=== PATIENT | female | born 1980 | race Caucasian/White ===

== ENCOUNTER → 2017-07-02 12:55 | Inpatient (IN) | payer BC, OTHER ==
[2017-06-30 04:25] VITALS: BMI 28.2
[2017-06-30 04:28] LABS: BASO % 0.2 % (0-2.0); EOS % 2.9 % (0-4.5); HEMATOCRIT 33.6 % (32.4-45.2); HEMOGLOBIN 11.2 GM/dL (10.7-15.3); LYMPH % 21.6 % (8-40); MCH 31.8 pg (25.7-33.7); MCHC 33.4 g/dl (32.0-36.0); MEAN CELL VOLUME 95.2 fl (80-96); MEAN PLT VOLUME 9.2 fl (7.5-11.1); MONO % 7.1 % (3.8-10.2); NEUT % 68.2 % (42.8-82.8); PLATELET COUNT 184 K/MM3 (134-434); RBC 3.54 M/mm3 (3.60-5.2); RDW 15.6 % (11.6-15.6); WHITE BLOOD COUNT 7.4 K/mm3 (4.0-10.0)
[2017-06-30 04:40] LABS: PROTHROMBIN TIME (PATIENT) 11.3 SEC (9.98-11.88)
[2017-06-30 04:43] LABS: ACTIVATED PTT 27.1 SECONDS (26.9-34.4)
[2017-06-30 04:55] LABS: ALBUMIN 2.7 g/dl (3.4-5.0); ALK PHOS 172 U/L (45-117); ANION GAP 11 (8-16); BILIRUBIN,TOTAL 0.1 mg/dL (0.2-1.0); BLOOD UREA NITROGEN 6 mg/dL (7-18); CALCIUM 8.5 mg/dL (8.5-10.1); CHLORIDE 106 mmol/L (98-107); CO2 22 mmol/L (21-32); CREATININE 0.5 mg/dL (0.55-1.02); GLUCOSE,RANDOM 91 mg/dL (74-106); SGPT/ALT 17 U/L (12-78); SODIUM 139 mmol/L (136-145); TOT PROT 6.3 g/dl (6.4-8.2)
[2017-06-30 05:01] LABS: POTASSIUM 3.8 mmol/L (3.5-5.1); SGOT/AST 23 U/L (15-37)
--- NOTE | 2017-06-30 05:07 | HP ---
Past Medical History - Admission History of Present Illness: 36 yo @ 37 6/7 wks by first trimester ultrasound, EDC 07/17/2017 complicated by: 1. Prior CD for breech, labor 2. Prior delivery 34 weeks - PPROM s/p 17 OHP last dose at 36 weeks 3. GBS positive, penicillin allergy clindamycin resistant 4. AMA - favorable cell free DNA, AFP normal Patient presents with chief complaint of leakage of clear fluid at 0200. She reports irregular contractions began at that time. She reports movement, denies vaginal bleeding. History Source: Patient Limitations to Obtaining History: No Limitations - Past Medical History Cardiovascular: No: HTN Pulmonary: No: Asthma ...: 4 ...Para: 1 ...Term: 1 ...: 0 ...Spon : 2 ...Induced : 0 ...Multiple Gestation: 0 ...LMP: 10/10/16 ... Weeks Gestation by Dates: 37.3 ...EDC by Dates: 07/17/17 ...EDC by Sono: 07/14/17 Heme/Onc: Yes: Anemia Dermatology: Yes: Eczema - Past Surgical History Past Surgical History: Yes: Hx Myomectomy: No Hx Transabdominal Cerclage: No - Smoking History Smoking history: Never smoked Have you smoked in the past 12 months: No Aproximately how many cigarettes per day: 0 - Alcohol/Substance Use Hx Alcohol Use: No History of Substance Use: reports: None - Social History ADL: Independent History of Recent Travel: No Home Medications - Allergies Allergies/Adverse Reactions: Allergies Allergy/AdvReac Type Severity Reaction Status Date / Time Penicillins Allergy Swelling Verified 04/12/17 16:26 - Home Medications Home Medications: Ambulatory Orders Vitamins (Sjr) - 1 tab PO DAILY 06/02/13 Ferrous Sulfate [Iron] 325 mg PO BID 06/30/17 Family Disease History - Family Disease History Family History: Denies Review of Systems - Review of Systems Constitutional: reports: No Symptoms Cardiovascular: reports: No Symptoms Respiratory: reports: No Symptoms Gastrointestinal: reports: No Symptoms Genitourinary: reports: No Symptoms Musculoskeletal: reports: No Symptoms Integumentary: reports: No Symptoms Endocrine: reports: No Symptoms Hematology/Lymphatic: reports: No Symptoms Psychiatric: reports: No Symptoms Physical Exam - Maternity Constitutional: Yes: Well Nourished, No Distress, Calm Cardiovascular: Yes: Regular Rate and Rhythm Lungs: Clear to auscultation - Abdominal Exam/OB Number of Fetuses: Single Presentation: Vertex Contractions: Yes Regularity: Irregular Intensity: Mild/Mod Monitor Mode: External Heart Rate (range): 130 Category: I Accelerations: Non-Uniform Decelerations: None - Vaginal Exam/OB Vaginal Bleediing: No - Physical Exam Psychiatric: Yes: Alert, Oriented - Labs Lab Results: CBC, BMP 06/30/17 04:10 PNL: O positive, antibody negative; RPR NR; HBS Ag negative; Rubella Immune; HIV negative : GBS positive Hemorrhage Risk Assessment - Risk Factors Medium Risk Factors: Yes: Prior , uterine surgery,or multiple laparotomies High Risk Factors: Yes: None Risk Score: 1 Risk Level: Medium Risk Assessment/Plan 36 yo @ 37 wks, PROM, desires TOLAC 1. Admit to labor and delivery 2. Consents reviewed and signed. Reviewed risks of Trial of Labor after Delivery, including but not limited to: - Risk of failed trial of labor resulting in a repeat delivery in approximately 20-40% of patients who attempt - Risk of rupture of uterus resulting in emergency delivery (0.2 - 1.5 % risk) - Risk of , neurologic compromise - Rare risk of maternal 3. GBS positive - clindamycin resistant, will start Vancomycin 1 g Q 12 H 4. Category I FHT 5. Will proceed with expectant management
--- NOTE | 2017-06-30 06:24 | PN ---
Ante-Partal Exam - Subjective Subjective: Pain with contractions Vital Signs: Vital Signs Temperature 97.4 F L 06/30/17 05:00 Pulse Rate 84 06/30/17 05:00 Respiratory Rate 20 06/30/17 05:00 Blood Pressure 122/65 06/30/17 05:00 O2 Sat by Pulse Oximetry (%) Bleeding: No Headache: No Visual changes: No Right upper quadrant pain: No - Contractions Contractions: Yes Regularity: Regular Intensity: Mod/Strong Monitor Mode: External - Exam during Labor Heart Rate: 140 Heart Rate Location: Midline Category: I Monitor Accelerations: Present Monitor Decelerations: None Exam: Vaginal Dilatation (cm): 4 Effacement (%): 100 Amniotic Membrane Status: Ruptured Presentation: Vertex Station: -1 - Intrapartum Hemorrhage Risk Medium Risk Factors: None High Risk Factors: None Risk Score: 0 Risk Level: Low Risk - Assessment/Plan Assessment/Plan: 36 yo TOLAC, in labor 1. Good cervical change 2. GBS positive, on vancomycin 1g for clindamycin resistance 3. Patient desires epidural for pain control 4. Will proceed with expectant management
--- NOTE | 2017-06-30 08:09 | PN ---
Ante-Partal Exam - Subjective Subjective: patient comfortable s/p epidural Vital Signs: Vital Signs Temperature 98.2 F 06/30/17 07:00 Pulse Rate 106 H 06/30/17 07:30 Respiratory Rate 18 06/30/17 07:30 Blood Pressure 107/67 06/30/17 07:30 O2 Sat by Pulse Oximetry (%) 97 06/30/17 07:30 Bleeding: No Headache: No Visual changes: No Right upper quadrant pain: No - Contractions Contractions: Yes Regularity: Regular Intensity: Moderate Monitor Mode: External - Exam during Labor Heart Rate: 135 Variability: Moderate Category: I Monitor Accelerations: Present Monitor Decelerations: Variable Exam: Vaginal Dilatation (cm): 7 Effacement (%): 100 Amniotic Membrane Status: Ruptured Presentation: Vertex Station: -1 - Intrapartum Hemorrhage Risk Medium Risk Factors: None High Risk Factors: None Risk Score: 0 Risk Level: Low Risk - Assessment/Plan Assessment/Plan: 36 yo @ 37+ wks active labor, TOLAC 1. Good cervical change 2. GBS positive, on vancomycin 3. Fetus does not require intervention 4. Will continue expectant management
--- NOTE | 2017-06-30 09:40 | PN ---
Ante-Partal Exam - Subjective Subjective: Patient comfortable s/p epidural Vital Signs: Vital Signs Temperature 98.7 F 06/30/17 08:00 Pulse Rate 97 H 06/30/17 09:15 Respiratory Rate 18 06/30/17 09:15 Blood Pressure 107/68 06/30/17 09:15 O2 Sat by Pulse Oximetry (%) 100 06/30/17 09:15 Bleeding: No Headache: No Visual changes: No Right upper quadrant pain: No - Contractions Contractions: Yes Regularity: Regular Intensity: Moderate Monitor Mode: External - Exam during Labor Heart Rate: 130 Variability: Moderate Category: I Monitor Accelerations: Present Monitor Decelerations: Variable Exam: Vaginal Dilatation (cm): 9.5 Effacement (%): 100 Amniotic Membrane Status: Ruptured Presentation: Vertex Station: 0 - Intrapartum Hemorrhage Risk Medium Risk Factors: None High Risk Factors: None Risk Score: 0 Risk Level: Low Risk - Assessment/Plan Assessment/Plan: 36 yo P1 TOLAC, active labor 1. Excellent cervical change, will allow descent of head 2. GBS positive, s/p vancomycin 3. Will proceed with expectant management
--- NOTE | 2017-06-30 10:17 | PN ---
Delivery - Delivery Vaginal Delivery: No Problems Type of Anesthesia: Epidural Episiotomy/Laceration: 1st degree EBL (cc): 300 Delivery, Single - Stages of Labor Date 1st Stage Initiatied: 06/30/17 Time 1st Stage Initiated: 02:00 Date 2nd Stage Initiated: 06/30/17 Time 2nd Stage Initiated: 09:45 Date of Delivery: 06/30/17 Time of Delivery: 10:00 Date Placenta Delivered: 06/30/17 Time Placenta Delivered: 10:10 Placenta: Yes: Spontaneous - Condition of Gender: Male Position: Left, OA - 1 Minute Total Score: 9 5 Minutes Total Score: 9 - Feeding Plan Initial Plan: Exclusive throughout hospitalization Remarks - Remarks Remarks: Patient progressed to fully dilated and at 1000 via delivered a viable male in MALLORY position, APGARs 9,9. Weight and length unknown at this time. Head delivered spontaneously followed by shoulders and body without difficulty. Infant with spontaneous cry and placed on mother's abdomen. Nose and mouth was bulb suctioned. Cord was clamped and cut. Perineum and vagina examined, a first degree laceration was noted and repaired in the usual fashion. Placenta was delivered spontaneously and intact. 20 units of pitocin in 1 L IVF was given. All counts correct x 2. Mother and stable in LDR. EBL 300cc.
[2017-06-30] MEDS: OXYTOCIN 20 UNITS in 0.9% NS 20 UNIT/1,000 ML INFUS.BAG IV SCH (12:25)
[2017-06-30] MEDS: IBUPROFEN 600 MG TABLET (FP) PO PRN (22:41)
--- NOTE | 2017-07-01 07:59 | PN ---
Post Progress Note - Subjective Subjective: Patient without acute complaints. Reports tolerating oral intake without nausea or vomiting. Ambulating without dizziness. Denies fevers or chills. Pain well controlled with oral pain medication. without difficulty. Passing flatus. Post Day: 1 Type of Delivery: Vital Signs: Vital Signs Temperature 97.7 F 07/01/17 06:00 Pulse Rate 90 07/01/17 06:00 Respiratory Rate 18 07/01/17 06:00 Blood Pressure 94/66 07/01/17 06:00 O2 Sat by Pulse Oximetry (%) 100 06/30/17 09:45 Uterus: Yes: Fundus Firm Abdomen/GI: Yes: Abdomen soft, Tolerating PO. No: Abdominal Distention, Tender , Passing flatus Lochia: Yes: Serosa Lochia, amount: Small Extremities: Yes: Calves non-tender. No: Edema Activity: Ambulating - Labs Labs: CBC WBC 7.4 K/mm3 (4.0-10.0) 06/30/17 04:10 RBC 3.54 M/mm3 (3.60-5.2) L 06/30/17 04:10 Hgb 11.2 GM/dL (10.7-15.3) 06/30/17 04:10 Hct 33.6 % (32.4-45.2) 06/30/17 04:10 MCV 95.2 fl (80-96) 06/30/17 04:10 MCH 31.8 pg (25.7-33.7) 06/30/17 04:10 MCHC 33.4 g/dl (32.0-36.0) 06/30/17 04:10 RDW 15.6 % (11.6-15.6) D 06/30/17 04:10 Plt Count 184 K/MM3 (134-434) 06/30/17 04:10 MPV 9.2 fl (7.5-11.1) 06/30/17 04:10 Neutrophils % 68.2 % (42.8-82.8) 06/30/17 04:10 Lymphocytes % 21.6 % (8-40) D 06/30/17 04:10 Monocytes % 7.1 % (3.8-10.2) 06/30/17 04:10 Eosinophils % 2.9 % (0-4.5) D 06/30/17 04:10 Basophils % 0.2 % (0-2.0) 06/30/17 04:10 Assessment/Plan 36 yo PPD # 1 s/p successful 1. Continue routine care. 2. Follow up AM CBC 3. Rh positive status, no rhogam indicated. 4. Continue oral pain medication 5. Anticipate discharge home day #2
[2017-07-01 08:18] LABS: BASO % 0.5 % (0-2.0); EOS % 2.5 % (0-4.5); HEMATOCRIT 32.1 % (32.4-45.2); HEMOGLOBIN 10.5 GM/dL (10.7-15.3); MCH 31.3 pg (25.7-33.7); MCHC 32.8 g/dl (32.0-36.0); MEAN CELL VOLUME 95.6 fl (80-96); MEAN PLT VOLUME 9.6 fl (7.5-11.1); PLATELET COUNT 163 K/MM3 (134-434); RBC 3.36 M/mm3 (3.60-5.2); RDW 15.7 % (11.6-15.6); WHITE BLOOD COUNT 11.2 K/mm3 (4.0-10.0)
--- NOTE | 2017-07-01 08:27 | DS ---
Physical Exam-RAIL MANAGER Vital Signs: Vital Signs Temperature 97.0 F L 07/01/17 08:23 Pulse Rate 87 07/01/17 08:23 Respiratory Rate 18 07/01/17 08:23 Blood Pressure 110/73 07/01/17 08:23 O2 Sat by Pulse Oximetry (%) 100 06/30/17 09:45 Labs: CBC, BMP 06/30/17 04:10 Delivery - Delivery Vaginal Delivery: No Problems Type of Anesthesia: Epidural Episiotomy/Laceration: 1st degree EBL (cc): 300 Delivery, Single - Stages of Labor Date 1st Stage Initiatied: 06/30/17 Time 1st Stage Initiated: 02:00 Date 2nd Stage Initiated: 06/30/17 Time 2nd Stage Initiated: 09:45 Date of Delivery: 06/30/17 Time of Delivery: 10:00 Time Placenta Delivered: 10:10 Placenta: Yes: Spontaneous - Condition of Artificial Teeth Inspector/Car Porter Present: No Infant Gender: Male Weight: 6 lb 13 oz Position: Left, OA Total Hours ROM (Hrs/Mins): 8HR/10MIN - 1 Minute Total Score: 9 5 Minutes Total Score: 9 - Feeding Plan Initial Plan: Exclusive throughout hospitalization Discharge Summary Reason For Visit: ADMIT LABOR Current Active Problems Vaginal after () (Acute) Procedures: Principal: Vaginal after delivery Hospital Course: Patient admitted s/p rupture of membranes, progressed and delivered via successful PPD # 1 patient ambulating, voiding, tolerating oral intake and adequate pain control Patient stable for discharge home PPD #2 Condition: Good - Instructions Diet, Activity, Other Instructions: Physical activity Resume your normal everyday activity as tolerated no heavy lifting or exercise until seen by your surgeon. You may walk unlimited ruel of and climb stairs. You may resume driving the car when you feel safe and comfortable behind the wheel. No sexual activity as instructed. Diet There are no dietary restrictions. Eat healthy, high-fiber foods. Drink 6 to 8 glasses of liquid each day. This will assist in keeping your bowels are regular. Pain management You may take Tylenol or acetaminophen or Ibuprofen (for example, Motrin, Advil etc.) from my pain prescription medication is ordered should be taken as prescribed for moderate to severe pain. Call MD for any of the following: Severe pain not relieved by medication Fever of 101 or higher Excessive bleeding or drainage on dressing Inability to urinate Disposition: HOME - Home Medications Comprehensive Discharge Medication List: Ambulatory Orders Vitamins (Sjr) - 1 tab PO DAILY 06/02/13 Ferrous Sulfate [Iron] 325 mg PO BID 06/30/17
[2017-07-01] MEDS: IBUPROFEN 600 MG TABLET (FP) PO PRN (20:39)
[2017-07-02] MEDS: IBUPROFEN 600 MG TABLET (FP) PO PRN (09:17)
--- NOTE | 2017-07-02 11:04 | PN ---
Post Progress Note - Subjective Subjective: Patient without acute complaints. Reports tolerating oral intake without nausea or vomiting. Ambulating without dizziness. Denies fevers or chills. Pain well controlled with oral pain medication. without difficulty. Passing flatus. Post Day: 2 Type of Delivery: Vital Signs: Vital Signs Temperature 97.6 F 07/01/17 21:00 Pulse Rate 87 07/01/17 21:00 Respiratory Rate 18 07/01/17 21:00 Blood Pressure 107/78 07/01/17 21:00 O2 Sat by Pulse Oximetry (%) 100 06/30/17 09:45 Breast Exam: Yes: Soft Uterus: Yes: Fundus Firm, Fundus below umbilicus Abdomen/GI: Yes: Abdomen soft, Passing flatus, Tolerating PO. No: Abdominal Distention, Tender Lochia: Yes: Serosa Lochia, amount: Small Extremities: Yes: Calves non-tender. No: Edema Perineum: Yes: Laceration Activity: Ambulating - Labs Labs: CBC WBC 11.2 K/mm3 (4.0-10.0) H D 07/01/17 06:30 RBC 3.36 M/mm3 (3.60-5.2) L 07/01/17 06:30 Hgb 10.5 GM/dL (10.7-15.3) L 07/01/17 06:30 Hct 32.1 % (32.4-45.2) L 07/01/17 06:30 MCV 95.6 fl (80-96) 07/01/17 06:30 MCH 31.3 pg (25.7-33.7) 07/01/17 06:30 MCHC 32.8 g/dl (32.0-36.0) 07/01/17 06:30 RDW 15.7 % (11.6-15.6) H 07/01/17 06:30 Plt Count 163 K/MM3 (134-434) 07/01/17 06:30 MPV 9.6 fl (7.5-11.1) 07/01/17 06:30 Neutrophils % 75.0 % (42.8-82.8) 07/01/17 06:30 Lymphocytes % 16.0 % (8-40) D 07/01/17 06:30 Monocytes % 6.0 % (3.8-10.2) 07/01/17 06:30 Eosinophils % 2.5 % (0-4.5) 07/01/17 06:30 Basophils % 0.5 % (0-2.0) 07/01/17 06:30 Assessment/Plan 36 yo PPD #2 s/p successful afebrile, vital signs stable, doing well 1. Patient stable for discharge home today. 2. Patient encouraged to contact MD for: - Severe pain not controlled by oral pain medication - Fevers or chills - Nausea or vomiting, intolerance of oral intake 3. Patient to follow up in office in 4-6 weeks for visit
[2017-07-02 11:05] VITALS: BP 111/67; PULSE 94; TEMP 98.5
[2017-07-02] MEDS: OXYTOCIN 20 UNITS in 0.9% NS 20 UNIT/1,000 ML INFUS.BAG IV SCH (11:23)
[~2017-07-02 12:55] MED LIST: ACETAMINOPHEN 325 MG TABLET (FP) PO PRN; BENZOCAINE 20% 57 GM BOTTLE TP PRN; BENZOCAINE 28 GM HEMORRHOIDAL OINTMENT TP PRN; BISACODYL 10 MG SUPP.RECT RC PRN; ELECTROLYTE-148 SOLN 1,000 ML IV SCH; FENTANYL/BUPIVACAINE/NS/PF - PCEA - 50 ML DISP.SYRIN EP ONE; FENTANYL/BUPIVACAINE/NS/PF - PCEA - 50 ML DISP.SYRIN EP SCH; LIDOCAINE HCL 1% PRESERVATIVE FREE - 30ML VIAL ONE; METHYLERGONOVINE MALEATE 0.2 MG/1 ML AMP IM PRN; NALOXONE HCL 0.4 MG/ML VIAL IVPUSH PRN; OXYTOCIN 20 UNITS in 0.9% NS 20 UNIT/1,000 ML INFUS.BAG IV ONE; SENNOSIDES/DOCUSATE COMBO (SENNA PLUS) TABLET (UD) PO PRN; TUBERCULIN PPD 5 TU/0.1ML SYRINGE (IN PATIENT USE ONLY) ID ONE; VANCOMYCIN 1 GRAM (PRE-DOCKED) 1,000 MG/250 ML BAG IVPB ONE; VANCOMYCIN 1 GRAM (PRE-DOCKED) 1,000 MG/250 ML BAG IVPB SCH; WITCH HAZEL 50% (TUCKS) 40 PAD/JAR PAD TP PRN; oxyCODONE HCL 5 MG TABLET PO PRN
== END | disposition home or self-care (01) | DRG 775 ==
LOC: JLDR 06-30 03:45 → UNDOADMIN 06-30 03:45 → JLDR 06-30 03:45 → J3W 06-30 12:49
PROVIDERS: ADMIT Obstetrics & Gynecology; ATTEND Obstetrics & Gynecology
PROC: 10E0XZZ Delivery of Products of Conception, External Approach (ICD-10-PCS; principal; 2017-06-30)
PROC: 0HQ9XZZ Repair Perineum Skin, External Approach (ICD-10-PCS; 2017-06-30)
DX: O34.211 Maternal care for low transverse scar from previous cesarean delivery (principal); O70.0 First degree perineal laceration during delivery; O99.824 Streptococcus B carrier state complicating childbirth; Z3A.37 37 weeks gestation of pregnancy; Z37.0 Single live birth
CPT/HCPCS: 36415; 59409; 80053; 85025; 85610; 85730; 86593; 86850; 86900; 86901

== ENCOUNTER 2019-04-07 11:59 | Emergency (ER) | payer BC, OTHER ==
[2019-04-07 12:31] VITALS: BP 107/68; PULSE 97; TEMP 97.8; BMI 25.8
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
== END 2019-04-07 13:36 | disposition home or self-care (01) ==
LOC: JERFT 11:59
DX: O99.89 Other specified diseases and conditions complicating pregnancy, childbirth and the puerperium (principal); M25.531 Pain in right wrist; Z3A.18 18 weeks gestation of pregnancy; Z88.0 Allergy status to penicillin
CPT/HCPCS: 73110-TC-RT-FY; 73130-TC-RT-FY; 99281-25

== ENCOUNTER 2019-06-05 10:18 | Observation (INO) | payer BC, OTHER ==
[2019-06-05 10:34] VITALS: BMI 26.6
--- NOTE | 2019-06-05 10:43 | PDOC ---
History of Present Illness - History of Present Illness Initial Comments: 06/05/19 11:10 38y/o F presenting to the ER with an episode of lightheadedness this morning. She has had a cough and cold for the last 1 week. She started feeling worse today, with more coughing this morning. She has has one episode of non- bloody non bilious emesis this a.m. and hasn't been eating and drinking as much over the last few days. She denies any fevers,chills, diarrhea, dysuria, hematuria, vaginal bleeding or spotting. <Felicia Humphrey - Last Filed: 06/09/19 13:14> <Deborah Wang - Last Filed: 06/09/19 14:45> - General Chief Complaint: Blood Pressure Problem Stated Complaint: COLD SYMPTOMS/27WKS Time Seen by Provider: 06/05/19 10:43 Past History - Past Medical History Asthma: No Cancer: No Cardiac Disorders: No COPD: No Diabetes: No HTN: No Seizures: No Thyroid Disease: No - Reproductive History (#): 2 Para: 0 Spontaneous : 1 - Psycho Social/Smoking Cessation Hx Smoking Status: No Smoking History: Never smoked Have you smoked in the past 12 months: No Number of Cigarettes Smoked Daily: 0 Hx Alcohol Use: No Drug/Substance Use Hx: No Hx Substance Use Treatment: No <Felicia Humphrey - Last Filed: 06/09/19 13:14> <Deborah Wang - Last Filed: 06/09/19 14:45> - Past Medical History Allergies/Adverse Reactions: Allergies Allergy/AdvReac Type Severity Reaction Status Date / Time Penicillins Allergy Swelling Verified 06/05/19 10:30 Home Medications: Ambulatory Orders Vitamins (Sjr) - 1 tab PO DAILY 06/02/13 Hydroxyprogesterone Caproat/Pf [Hydroxyprogest 250 mg/ml Vial] 1 mg SQ WEEKLY Ferrous Sulfate 325 mg PO DAILY #90 tablet 06/06/19 *Physical Exam - Vital Signs Last Vital Signs Temp Pulse Resp BP Pulse Ox 98.4 F 129 H 22 H 88/55 L 99 06/05/19 10:33 06/05/19 10:33 06/05/19 10:33 06/05/19 10:33 06/05/19 10:33 - Physical Exam 06/05/19 11:14 PE: GENERAL: Awake, alert, and fully oriented, in no acute distress HEAD: No signs of trauma, normocephalic, atraumatic EYES: PERRLA, EOMI, sclera anicteric, conjunctiva clear ENT: Auricles normal inspection, hearing grossly normal, nares patent, oropharynx clear without exudates. Moist mucosa NECK: Normal ROM, supple, no lymphadenopathy, JVD, or masses LUNGS: No distress, speaks full sentences, clear to auscultation bilaterally HEART: tachycardic normal S1 and S2, no murmurs, rubs or gallops, peripheral pulses normal and equal bilaterally. ABDOMEN: Soft, nontender, normoactive bowel sounds. gravid uterus No guarding, no rebound. No masses EXTREMITIES : Normal inspection, Normal range of motion, no edema. No clubbing or cyanosis NEUROLOGICAL: Cranial nerves II through XII grossly intact. Normal speech, normal gait, no focal sensorimotor deficits SKIN: Warm, Dry, normal turgor, no rashes or lesions noted <Felicia Humphrey - Last Filed: 06/09/19 13:14> - Vital Signs Last Vital Signs Temp Pulse Resp BP Pulse Ox 98.2 F 105 H 18 90/48 L 99 06/06/19 09:36 06/06/19 09:36 06/06/19 09:36 06/06/19 09:36 06/06/19 09:36 <Deborah Wang - Last Filed: 06/09/19 14:45> ED Treatment Course - LABORATORY CBC & Chemistry Diagram: 06/06/19 06:15 06/06/19 06:15 <Felicia Humphrey - Last Filed: 06/09/19 13:14> - LABORATORY CBC & Chemistry Diagram: 06/06/19 06:15 06/06/19 06:15 - ADDITIONAL ORDERS Additional order review: 06/06/19 06:20 Blood Culture - Preliminary Blood - Peripheral Venous NO GROWTH OBTAINED AFTER 72 HOURS, INCUBATION TO CONTINUE FOR 2 DAYS. 06/06/19 06:15 Blood Culture - Preliminary Blood - Peripheral Venous NO GROWTH OBTAINED AFTER 72 HOURS, INCUBATION TO CONTINUE FOR 2 DAYS. 06/05/19 11:25 Urine Culture - Final Urine - Urine Clean Catch Normal Urogenital Annia 06/06/19 06/05/19 06:15 11:25 RBC 2.61 L 3.25 L MCV 94.6 95.4 MCHC 35.0 33.9 RDW 13.2 12.9 D MPV 9.4 9.9 Neutrophils % 79.3 93.2 H D Lymphocytes % 12.9 D 3.7 L D Monocytes % 5.6 D 2.9 L Eosinophils % 2.0 D 0.0 D Basophils % 0.2 0.2 - Medications Given in the ED: ED Medications Discontinued Medications Generic Name Dose Route Start Last Admin Trade Name Freq PRN Reason Stop Dose Admin Ceftriaxone Sodium 1,000 mg/ 50 mls @ 100 mls/hr 06/05/19 13:05 06/05/19 13: 45 Dextrose IVPB 06/05/19 13:34 100 mls/hr ONCE ONE Administration Lactated Ringer's 1,000 ml in 1,000 mls @ 100 mls/hr 06/05/19 15:45 06/06/19 03:01 Lactated Ringers Solution IV 100 mls/hr ASDIR JOHN Administration Sodium Chloride 1,000 ml 06/05/19 10:46 06/05/19 10:46 Normal Saline - IV 06/05/19 10:47 1,000 ml ONCE ONE Administration Sodium Chloride 1,000 ml 06/05/19 11:45 06/05/19 11:58 Normal Saline - IV 06/05/19 11:46 1,000 ml ONCE ONE Administration Sodium Chloride 1,000 ml 06/05/19 13:05 06/05/19 13:20 Normal Saline - IV 06/05/19 13:06 1,000 ml ONCE ONE Administration <Deborah Wang - Last Filed: 06/09/19 14:45> Medical Decision Making - Medical Decision Making 06/05/19 11:15 BP now at 98/70 with ongoing fluid resuscitation. 06/05/19 13:08 BP at 108/77, HR 113. Pt. feeling a little better, but still tired bacteriuria on UA ceftriaxone ordered. 06/05/19 14:46 Bp at this time 99/ 60 with a MAP of 72 06/05/19 15:09 PCP dR haile contacted for admission, pt admitted to his service Dr. Barksdale (pts OB) has been contacted and raul left with his service for consult <Felicia Humphrey - Last Filed: 06/09/19 13:14> Discharge - Discharge Information Problems reviewed: Yes <Felicia Humphrey - Last Filed: 06/09/19 13:14> - Admission Yes <Deborah Wang - Last Filed: 06/09/19 14:45> - Discharge Information Clinical Impression/Diagnosis: with 27 completed weeks gestation, Syncope, near Hypotension Qualifiers: Hypotension type: unspecified hypotension type Qualified Code(s): I95.9 - Hypotension, unspecified Condition: Fair
--- NOTE | 2019-06-05 10:45 | PDOC ---
Attending Attestation - Resident Resident Name: Felicia Humphrey - ED Attending Attestation I have performed the following: I have examined & evaluated the patient, The case was reviewed & discussed with the resident, I agree w/resident's findings & plan - HPI HPI: 06/05/19 11:25 38y/o F presenting to the ER with an episode of lightheadedness, episode of near syncope this morning. She has had a cough and cold for the last 1 week. She started feeling worse today, with more coughing this morning. She has has one episode of non-bloody non bilious emesis this a.m. Admits to decreased PO and fluid intake in the last few days. +sick kids at home with croup/URI sx. She denies any fevers,chills, chest pain, shortness of breath, diarrhea, dysuria , hematuria, vaginal bleeding or spotting. - Physicial Exam PE: 06/05/19 10:44 Agree with the resident's HPI and PE as documented in the electronic medical record. NAD, well appearing, EOMI, PERRL, nl conjunctiva, anicteric; neck supple. lungs clear, +tachycardic, abdomen soft nontender. +gravid uterus. no rebound, guarding. Back nontender. PERALES x4, no focal neuro deficits. No peripheral edema. normal color for ethnicity, WWP. no rash 06/05/19 11:25 06/05/19 11:26 - Medical Decision Making 06/05/19 10:44 Vital Signs Temp Pulse Resp BP Pulse Ox 98.4 F 129 H 22 H 88/55 L 99 06/05/19 10:33 06/05/19 10:33 06/05/19 10:33 06/05/19 10:33 06/05/19 10:33 Vital signs notable for normal temperature, tachycardic and hypotensive, saturations are 99% on room air. lungs clear, no respiratory distress flu test basic labs and lytes wnl IVF hydration reassess, repeat VS remains tachy, BP soft but improving with IVF hydration bedside sono with reassuring heart rate, well being FHR ~150-160 bpm, estimated dates 26 wks by FL. live IUP seen dr Barksdale is primary retail service specialist, will consult for monitoring and assessment. no abdominal pain or vomiting UTI /bacteruria of noted, IV ceftriaxone noted. unlikely pcn allergy to reaction with cephalosporin, given low risk of cross reactivity IV ceftriaxone, urine cultures. admitting to Dr Pearce for hydration, supportive care, abx and medical management. 06/05/19 11:26 06/05/19 15:49 Heart Score/ECG Review #1 ECG reviewed & interpreted by me at: 10:40 06/05/19 10:45 EKG sinus tachycardia at 127 bpm, no interval abnormalities, narrow QRS, ST and T wave segments and morphology normal. Nonspecific T wave abnormalities
[2019-06-05] MEDS ORDERED: SODIUM CHLORIDE 0.9% 500 ML INFUS.BAG IV ONE ×3 (10:46→13:05)
[2019-06-05 11:45] LABS: BASO % 0.2 % (0-2.0); HEMOGLOBIN 10.5 GM/dL (10.7-15.3); LYMPH % 3.7 % (8-40); MCH 32.3 pg (25.7-33.7); MCHC 33.9 g/dl (32.0-36.0); MEAN CELL VOLUME 95.4 fl (80-96); MEAN PLT VOLUME 9.9 fl (7.5-11.1); MONO % 2.9 % (3.8-10.2); NEUT % 93.2 % (42.8-82.8); PLATELET COUNT 209 K/MM3 (134-434); RBC 3.25 M/mm3 (3.60-5.2); RDW 12.9 % (11.6-15.6)
[2019-06-05 12:08] LABS: BILIRUBIN,TOTAL 0.4 mg/dL (0.2-1); BLOOD UREA NITROGEN 6.3 mg/dL (7-18); CALCIUM 8.8 mg/dL (8.5-10.1); CREATININE 0.5 mg/dL (0.55-1.3); TOT PROT 7.2 g/dl (6.4-8.2)
[2019-06-05 12:31] LABS: ANISOCYTOSIS 1+; MACROCYTOSIS 1+; PLATELET ESTIMATE NORMAL
[2019-06-05 12:57] LABS: EPI CELLS 15.2 /HPF (0-5/HPF); HYALINE CASTS 8 /lpf (0-8); PH,URINE 6.5 (5.0-8.0); URINE APPEARANCE CLOUDY; URINE BILIRUBIN NEGATIVE (NEGATIVE); URINE COLOR YELLOW; URINE GLUCOSE (UA) NEGATIVE (NEGATIVE); URINE KETONE NEGATIVE (NEGATIVE); URINE LEUK ESTERASE 1+ (NEGATIVE); URINE NITRITE NEGATIVE (NEGATIVE); URINE PROTEIN NEGATIVE (NEGATIVE); URINE RBC 1 /hpf (0-4); URINE UROBILINOGEN 0.2 mg/dL (0.2-1.0); URINE WBC 15 /hpf (0-5)
[2019-06-05] MEDS ORDERED: CEFTRIAXONE 1,000 MG in DEXTROSE 5%-WATER - 50 ML IVPB ONE (13:05)
--- NOTE | 2019-06-05 14:39 | EKG ---
Test Reason : Blood Pressure : / mmHG Vent. Rate : 127 BPM Atrial Rate : 127 BPM P-R Int : 130 ms QRS Dur : 076 ms QT Int : 308 ms P-R-T Axes : 067 043 025 degrees QTc Int : 447 ms SINUS TACHYCARDIA OTHERWISE NORMAL ECG NO PREVIOUS ECGS AVAILABLE Confirmed by SILVIA JOYCE MD ([id number]) on 06/05/2019 2:39:13 PM Referred By: Confirmed By:SILVIA JOYCE MD
[2019-06-05] MEDS ORDERED: [UNRECOGNIZED DRUG - OTHER] SQ SCH (15:45)
--- NOTE | 2019-06-05 15:58 | HP ---
Admitting History and Physical - Admission Chief Complaint: 38 y.o F with 27 weeks was admitted today to [facility] due to episode of syncope at home. Reportedly her 2 children had URI. Inthe ER hypotensive and tachycardic, with severe generalized weakness. The patient reports coughing for the last week, vomiting today x1, frequent urination. Since the patient condition did not significantly improved after IV fluids she was admitted for further management. History of Present Illness: Eczema. 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: Alzheimer's, CVA, Dementia, Migraine, Multiple Sclerosis, Peripheral Neuropathy, Parkinson's, Seizure, Syncope, TIA, Vertigo, Other Cardiovascular: No: AFIB, Aneurysm, Aortic Insufficiency, Aortic Stenosis, CAD, CHF, Deep Vein Thrombosis, HTN, Hyperlipdemia, [place], Mitral Insufficiency, Mitral Stenosis, Murmur, Pulmonary Hypertension, Other Pulmonary: No: Asthma, Bronchitis, Cancer, COPD, O2 Dependent, Pneumonia, Previously Intubated, Pulmonary Embolus, Pulmonary Fibrosis, Sleep Apnea, Other Gastrointestinal: Yes: Irritable Bowel Disease Hepatobiliary: No: Cirrhosis, Cholelithiasis, Cholecystitis, Choledocholithiasis , Hepatitis A, Hepatitis B, Hepatitis C, Other Renal/: No: Renal Failure, Renal Inusuff, BPH, Cancer, Hematuria, Hemodialysis , Neurogenic Bladder, Renal Calculi, UTI, Other Reproductive: No: Ectopic , Endometriosis, Fibroids, PID, Polycystic Ovary Syndrome, Postmenopausal, Other ...LMP: 10/29/12 Heme/Onc: Yes: Anemia Dermatology: Yes: Eczema - Past Surgical History Past Surgical History: Yes: - Smoking History Smoking history: Never smoked Have you smoked in the past 12 months: No Aproximately how many cigarettes per day: 0 - Alcohol/Substance Use Hx Alcohol Use: No History of Substance Use: reports: None - Social History ADL: Independent History of Recent Travel: No Home Medications - Allergies Allergies/Adverse Reactions: Allergies Allergy/AdvReac Type Severity Reaction Status Date / Time Penicillins Allergy Swelling Verified 06/05/19 10:30 - Home Medications Home Medications: Ambulatory Orders Vitamins (r) - 1 tab PO DAILY 06/02/13 Hydroxyprogesterone Caproat/Pf [Hydroxyprogest 250 mg/ml Vial] 1 mg SQ WEEKLY Family Medical History Family History: Unremarkable Review of Systems - Review of Systems Constitutional: reports: Loss of Appetite, Weakness Eyes: denies: No Symptoms, Blind Spots, Blurred Vision, Double Vision, Eye Pain , Floaters, Photophobia, Recent Change in Vision, Other HENT: denies: No Symptoms, Difficult Swallowing, Ear Discharge, Ear Pain, Epistaxis, Gingival Bleeding, Hearing Loss, Mouth Swelling, Nasal Congestion, Ocular Prosthesis, Throat Pain, Toothache, Ringing in Ears, Other Neck: denies: No Symptoms, Decreased ROM, Lumps, Pain on Movement, Stiffness, Swollen Glands, Tenderness, Other Cardiovascular: reports: Shortness of Breath Respiratory: reports: Cough, SOB Gastrointestinal: reports: Vomiting (X1) Genitourinary: reports: Frequency Breasts: reports: No Symptoms Reported Musculoskeletal: reports: No Symptoms Integumentary: reports: Rash (Eczema) Neurological: reports: No Symptoms Endocrine: reports: No Symptoms Hematology/Lymphatic: reports: No Symptoms Psychiatric: reports: No Symptoms Physical Examination Vital Signs: Vital Signs Temperature 98.4 F 06/05/19 10:33 Pulse Rate 108 H 06/05/19 13:20 Respiratory Rate 20 06/05/19 13:20 Blood Pressure 108/77 06/05/19 13:20 O2 Sat by Pulse Oximetry (%) 98 06/05/19 13:20 Constitutional: Yes: No Distress, Anxious Eyes: Yes: Conjunctiva Clear, EOM Intact HENT: Yes: Atraumatic, Normocephalic Neck: Yes: Supple, Trachea Midline Cardiovascular: Yes: Regular Rate and Rhythm, Tachycardia, S1, S2 Respiratory: Yes: Regular, CTA Bilaterally ...Rectal Exam: Yes: Deferred Renal/: No: Anuria, Bladder Distention Breast(s): Yes: WNL Musculoskeletal: Yes: WNL Extremities: Yes: WNL Edema: No Peripheral Pulses WNL: Yes Integumentary: Yes: WNL Neurological: Yes: WNL ...Motor Strength: WNL Psychiatric: Yes: WNL Labs: CBC, BMP 06/05/19 11:25 06/05/19 11:25 Laboratory Results - last 24 hr 06/05/19 06/05/19 06/05/19 11:25 11:25 11:25 WBC 17.0 H RBC 3.25 L Hgb 10.5 L Hct 31.0 L MCV 95.4 MCH 32.3 MCHC 33.9 RDW 12.9 D Plt Count 209 D MPV 9.9 Absolute Neuts (auto) 15.8 H Neutrophils % 93.2 H D Neutrophils % (Manual) 90.1 H Band Neutrophils % 3.9 Lymphocytes % 3.7 L D Lymphocytes % (Manual) 3.0 L Monocytes % 2.9 L Monocytes % (Manual) 3 L Eosinophils % 0.0 D Eosinophils % (Manual) 0.0 Basophils % 0.2 Basophils % (Manual) 0.0 Myelocytes % (Man) 0 Promyelocytes % (Man) 0 Blast Cells % (Manual) 0 Nucleated RBC % 0 Metamyelocytes 0 Hypochromia 1+ Platelet Estimate Normal Polychromasia 1+ Poikilocytosis 0 Anisocytosis 1+ Macrocytosis 1+ Sodium 136 Potassium 4.0 Chloride 104 Carbon Dioxide 24 Anion Gap 8 BUN 6.3 L Creatinine 0.5 L Est GFR (CKD-EPI)AfAm 143.30 Est GFR (CKD-EPI)NonAf 123.64 Random Glucose 89 Calcium 8.8 Total Bilirubin 0.4 AST 18 ALT 15 Alkaline Phosphatase 99 Total Protein 7.2 Albumin 3.0 L Urine Color Urine Appearance Urine pH Ur Specific [place] Urine Protein Urine Glucose (UA) Urine Ketones Urine Blood Urine Nitrite Urine Bilirubin Urine Urobilinogen Ur Leukocyte Esterase Urine WBC (Auto) Urine RBC (Auto) Urine Casts (Auto) U Epithel Cells (Auto) Urine Bacteria (Auto) Influenza A (Rapid) Negative Influenza B (Rapid) Negative 06/05/19 11:25 WBC RBC Hgb Hct MCV MCH MCHC RDW Plt Count MPV Absolute Neuts (auto) Neutrophils % Neutrophils % (Manual) Band Neutrophils % Lymphocytes % Lymphocytes % (Manual) Monocytes % Monocytes % (Manual) Eosinophils % Eosinophils % (Manual) Basophils % Basophils % (Manual) Myelocytes % (Man) Promyelocytes % (Man) Blast Cells % (Manual) Nucleated RBC % Metamyelocytes Hypochromia Platelet Estimate Polychromasia Poikilocytosis Anisocytosis Macrocytosis Sodium Potassium Chloride Carbon Dioxide Anion Gap BUN Creatinine Est GFR (CKD-EPI)AfAm Est GFR (CKD-EPI)NonAf Random Glucose Calcium Total Bilirubin AST ALT Alkaline Phosphatase Total Protein Albumin Urine Color Yellow Urine Appearance Cloudy Urine pH 6.5 Ur Specific [place] 1.009 L Urine Protein Negative Urine Glucose (UA) Negative Urine Ketones Negative Urine Blood Negative Urine Nitrite Negative Urine Bilirubin Negative Urine Urobilinogen 0.2 Ur Leukocyte Esterase 1+ H Urine WBC (Auto) 15 Urine RBC (Auto) 1 Urine Casts (Auto) 8 U Epithel Cells (Auto) 15.2 Urine Bacteria (Auto) 335.0 Influenza A (Rapid) Influenza B (Rapid) Imaging - Results EKG: Report Reviewed, Image Reviewed Problem List - Problems (1) Syncope and collapse Assessment/Plan: Low BP, Tachycardia in a patient, coughing for 1 week, Will continue IV hydration. Cardiology consult ECHO. Code(s): R55 - SYNCOPE AND COLLAPSE (2) Cough Assessment/Plan: Probably URI, influenza screen negative. Will follow with pulmonology. Code(s): R05 - COUGH (3) UTI (urinary tract infection) Assessment/Plan: Elevated WBC-17k, 15 WBC in UA, C@S pending Will ask for ID cosult Follow urine culture Code(s): N39.0 - URINARY TRACT INFECTION, SITE NOT SPECIFIED Qualifiers: Encounter type: initial encounter (4) Anemia Assessment/Plan: Follow H/H. Anemia w/u Code(s): D64.9 - ANEMIA, UNSPECIFIED Qualifiers: Anemia type: unspecified type Qualified Code(s): D64.9 - Anemia, unspecified
[2019-06-05] MEDS: LACTATED RINGERS SOLUTION 1,000 ML/1,000 ML INFUS.BAG IV SCH (16:13)
--- NOTE | 2019-06-05 16:31 | CON.CARD ---
Consult Consult Specialty:: cardio - History of Present Illness Chief Complaint: passed out History of Present Illness: 38 F here with pre-syncope. she is 27 weeks , 2 other children at home (who had recent URI). for a week she's had a URI herself with frequent coughing and malaise. last night she was awake most of the night coughing, slept a little bit off and on. this AM she felt LH from time she got up around 6 am. was rushing around to get her kids ready to leave for school, tried to eat and drink a little but felt nauseated--vomited x 1 so did not eat anything really. LH kept coming and going but then one severe episode where felt very LH and vision began to darken, thought she might faint--went to lay down for a bit, felt a bit better. came to hospital. no palpitations or cp/sob at time of those events. she's had modest sob at times during this URI with coughing fits. no severe sob episodes. no feet/leg swelling or calf/leg pains. denies family history of CMP. grandfather had OK and ? related CHF when elderly. initial VSs: 88/55, HR 129 low bp and tachy in ER--IVF given continued to c/o generalized weakness BP trend up (systolic 100s), HR trend down (100s) after fluids. O2 sats consistently normal. WBC 17, normal temps. 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: Alzheimer's, CVA, Dementia, Migraine, Multiple Sclerosis, Peripheral Neuropathy, Parkinson's, Seizure, Syncope, TIA, Vertigo, Other Cardio/Vascular: No: AFIB, Aneurysm, Aortic Insufficiency, Aortic Stenosis, CAD , CHF, Deep Vein Thrombosis, HTN, Hyperlipdemia, [place], Mitral Insufficiency, Mitral Stenosis, Murmur, Pulmonary Hypertension, Other Pulmonary: No: Asthma, Bronchitis, Cancer, COPD, O2 Dependent, Pneumonia, Previously Intubated, Pulmonary Embolus, Pulmonary Fibrosis, Sleep Apnea, Other Gastrointestinal: Yes: Irritable Bowel Disease Hepatobiliary: No: Cirrhosis, Cholelithiasis, Cholecystitis, Choledocholithiasis , Hepatitis A, Hepatitis B, Hepatitis C, Other Renal/: No: Renal Failure, Renal Inusuff, BPH, Cancer, Hematuria, Hemodialysis , Neurogenic Bladder, Renal Calculi, UTI, Other ...LMP: 10/29/12 Dermatology: Yes: Eczema - Past Surgical History Past Surgical History: Yes: - Alcohol/Substance Use Hx Alcohol Use: No History of Substance Use: reports: None - Smoking History Smoking history: Never smoked Have you smoked in the past 12 months: No Aproximately how many cigarettes per day: 0 - Social History Usual Living Arrangement: With Spouse ADL: Independent History of Recent Travel: No Home Medications - Allergies Allergies/Adverse Reactions: Allergies Allergy/AdvReac Type Severity Reaction Status Date / Time Penicillins Allergy Swelling Verified 06/05/19 10:30 - Home Medications Home Medications: Ambulatory Orders Vitamins (Sjr) - 1 tab PO DAILY 06/02/13 Hydroxyprogesterone Caproat/Pf [Hydroxyprogest 250 mg/ml Vial] 1 mg SQ WEEKLY Review of Systems - Review of Systems Constitutional: denies: Chills, Fever Eyes: denies: Eye Pain HENT: denies: Nasal Congestion Neck: denies: Stiffness Cardiovascular: denies: Palpitations Respiratory: denies: Orthopnea, PND Gastrointestinal: denies: Diarrhea, Rectal Bleeding Genitourinary: denies: Burning, Hematuria Musculoskeletal: denies: Muscle Pain Integumentary: denies: Rash Neurological: denies: Numbness, Seizure, Syncope Endocrine: denies: Excessive Sweating Hematology/Lymphatic: denies: Excessive Bleeding Vital Signs: Vital Signs Temperature 98.1 F 06/05/19 16:05 Pulse Rate 102 H 06/05/19 16:05 Respiratory Rate 18 06/05/19 16:05 Blood Pressure 101/68 06/05/19 16:05 O2 Sat by Pulse Oximetry (%) 99 06/05/19 16:05 Constitutional: Yes: Well Nourished, No Distress Eyes: No: Sclera Icterus HENT: No: Nasal Congestion Neck: No: Decreased ROM Respiratory: Yes: CTA Bilaterally. No: Accessory Muscle Use, Rales, Wheezes Gastrointestinal: Yes: Normal Bowel Sounds, Palpable Mass ( uterus). No : Distention, Hepatomegaly, Tenderness Cardiovascular: Yes: Regular Rate and Rhythm JVD: No Carotid Bruit: No PMI: Non-Displaced Heart Sounds: Yes: S1, S2. No: Gallop Murmur: No: Systolic Murmur, Diastolic Murmur Musculoskeletal: Yes: Other (No kyphosis) Extremities: No: Calf Tenderness, Cool, Cyanosis Edema: No Peripheral Pulses: 2+ Left Carotid, 2+ Right Carotid, 2+ Left Doralis Pedis, 2+ Right Dorsalis Pedis Integumentary: No: Jaundice Neurological: Yes: Alert, Oriented (x3) Psychiatric: No: Agitated - Other Data Labs, Other Data: CBC, BMP 06/05/19 11:25 06/05/19 11:25 Assessment/Plan ECG: sinus tach, non-path q's inferior leads, normal intervals = WNL presyncope: -highly likely orthostatic hypotension: occurred in setting of limited sleep last night with profuse coughing (-->insensible fluid losses) on top of 7 days or so of ongoing coughing fits, in vasodilated state of , with no PO intake. -sx's only occurred while in upright posture off and on throughout the AM until more severe episode occurred. -no suspicious arrhythmia sx's, ecg normal intervals. -no clinical findings suspicious for PE (sinus tach with normal sats here highly likely sec to vol depleted/vasodilated state, +/- residual ongoing URI with cough) -rec tele monitor overnight -check echo (not in timing of where she's at risk for charlette- CMP , no findings of CHF on exam) -cont IVF--bp/hr trend improving with hydration -if feels well tomorrow and VSs continue to improve, anticipate she will be ready for d/c tomorrow
--- NOTE | 2019-06-05 19:45 | CONSULT ---
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 History of Present Illness: URI symptoms x 1 week with cough and nausea, decreased PO. She is congested and has both children with cough. No SOB or chest pain. No fever or chills. [place] faint in the morning and drove herself to ER. No LOC, no falling or trauma. In ER noted to have tachycardia and BP in lower range. The pt was admitted for evaluation and IV hydration. 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 History of Recent Travel: No Review of Systems Findings/Remarks: Well appearing, NAD - Review of Systems Constitutional: reports: Loss of Appetite, Malaise Eyes: reports: No Symptoms HENT: reports: Nasal Congestion Neck: reports: No Symptoms Cardiovascular: reports: No Symptoms Respiratory: reports: Cough Gastrointestinal: reports: Nausea Genitourinary: reports: No Symptoms Breasts: reports: No Symptoms Reported Musculoskeletal: reports: No Symptoms Integumentary: reports: No Symptoms Neurological: reports: No Symptoms Endocrine: reports: No Symptoms Hematology/Lymphatic: reports: No Symptoms Psychiatric: reports: No Symptoms Pain Intensity: 0 Physical Exam - Maternity Vital Signs: Vital Signs Temperature 98.9 F 06/05/19 17:34 Pulse Rate 117 H 06/05/19 17:34 Respiratory Rate 20 06/05/19 17:34 Blood Pressure 96/60 06/05/19 17:34 O2 Sat by Pulse Oximetry (%) 99 06/05/19 16:05 Constitutional: Yes: Well Nourished, No Distress, Calm Eyes: Yes: WNL, Conjunctiva Clear, EOM Intact HENT: Yes: WNL, Atraumatic, Normocephalic Neck: Yes: WNL, Supple, Trachea Midline Cardiovascular: Yes: WNL, Regular Rate and Rhythm, Tachycardia Lungs: Clear to auscultation, Normal air movement - Abdominal Exam/OB Fundal Height: 27 Number of Fetuses: Single - Vaginal Exam/OB Vaginal Bleediing: No - Physical Exam Musculoskeletal: Yes: WNL Extremities: Yes: WNL Edema: No Integumentary: Yes: WNL Deep Tendon Reflex Grade: Normal +2 ...Motor Strength: WNL Psychiatric: Yes: WNL, Alert, Oriented - Labs Lab Results: CBC, BMP 06/05/19 11:25 06/05/19 11:25 Hemorrhage Risk Assessment - Risk Factors Medium Risk Factors: Yes: None High Risk Factors: Yes: None Risk Score: 1 Risk Level: Medium Risk Procedures, Laborist - Status Monitor Mode: External Heart Rate: 145 Monitor Accelerations: Non-Uniform Monitor Decelerations: None - Amniotic Membrane Amniotic Membrane Status: Intact Problem List - Problems (1) Postural hypotension Assessment/Plan: Cardiology consultation noted. The pt has had BP's in low-normal range during her visits (98-106/60-78). This appears to be a likely postural hypotension syndrome, in setting of , URI and dcreased fluid intake. There is no evidence of acute cardiac disease, PE, or other problems at this time. I agree with telemetry observation and IV hydration. If the sx's of tachycardia continue or other suspicion of cardiac pathology, would proceed with cardiac echo. Code(s): I95.1 - ORTHOSTATIC HYPOTENSION (2) with 27 completed weeks gestation Assessment/Plan: Evaluation on L&D is reassuring. FHT is category I for this gestational age. Not in labor and no issues at this time. Problems reviewed: Yes Code(s): Z3A.27 - 27 WEEKS GESTATION OF (3) Upper respiratory infection Assessment/Plan: Supportive management. No evidence of pneumonia at this time. Problems reviewed: Yes Code(s): J06.9 - ACUTE UPPER RESPIRATORY INFECTION, UNSPECIFIED Qualifiers: URI type: unspecified viral URI Qualified Code(s): J06.9 - Acute upper respiratory infection, unspecified
--- NOTE | 2019-06-05 22:07 | PN ---
Progress Note (short form) - Note Progress Note: ID CONSULT DICTATED
--- NOTE | 2019-06-06 00:20 | CONS ---
DATE OF CONSULTATION: DATE OF DICTATION: 06/05/2019 INFECTIOUS DISEASE CONSULTATION HISTORY OF PRESENT ILLNESS: The patient is a 38-year-old female with a 27-week intrauterine evaluated for possible sepsis. She was admitted to the hospital on June 05, 2019, after a near syncopal episode. The patient reports recent upper respiratory tract symptoms after being exposed to small children with respiratory tract symptoms. She self medicated with [id number] remedies. She reports having a near syncopal episode while at home. She denies any fall, any loss of consciousness, or head trauma. No associated fever or chills. She was evaluated in the emergency room, where she was noted to be hypotensive with a markedly elevated white blood cell count. She was given 3 L intravenous fluids. Patient was empirically treated with ceftriaxone. At the present time, she is awake and alert. She has no complaints of any pain or fever or chills. She has had urinary frequency which she attributes to her . Denies dysuria or hematuria. Denies chest pain or shortness of breath. She has had some nausea. No diarrhea. PAST MEDICAL HISTORY: Positive for mastoiditis, diverticulitis. PAST SURGICAL HISTORY: Status post section. ALLERGIES: PENICILLIN. She reports facial swelling many years ago; denies history of anaphylactic reaction. SOCIAL HISTORY: She is a nonsmoker. Lives at home with her family. She had 2 small children. SYSTEMS REVIEW: Neurologic: No loss of consciousness, seizure activity, focal weakness. Cardiac: Negative for chest pain or palpitations. Respiratory: Negative for cough or sputum production. Gastrointestinal: Positive nausea. No diarrhea. Genitourinary: Negative for urinary tract infection. LABORATORY DATA: White count 17.0, hematocrit 31, platelets 209, with 93 neutrophils, 4 bands, 3 lymphocytes, 3 monocytes. Urinalysis 15 white cells, creatinine 0.5, liver enzymes normal, influenza swab negative. PHYSICAL EXAMINATION: General: On exam, she is awake and alert, not acutely toxic appearing. Vital signs: Temperature 98.1, blood pressure 101/68, pulse 102 and regular respirations 18 per minute. HEENT: Sclerae anicteric. Cardiovascular: Heart sounds tachycardic S1, S2. Lungs: Clear. No rhonchi, rales, or wheezing. Abdomen: Soft, gravid uterus. Extremities: Negative for edema. Negative Homans sign. IMPRESSION: 1. Near syncope. 2. Leukocytosis, rule out possible sepsis. 3. Pyuria, rule out urinary tract infection/sepsis secondary to urinary tract infection. 4. Recent upper respiratory infection. Obtain cultures. Await urine culture. Empiric antibiotic coverage with ceftriaxone. Will follow. Thank you for the kind referral. BARBI ACOSTA M.D. HUONG/[id number]
[2019-06-06] MEDS: LACTATED RINGERS SOLUTION 1,000 ML/1,000 ML INFUS.BAG IV SCH (03:01)
[2019-06-06 06:55] LABS: BASO % 0.2 % (0-2.0); HEMATOCRIT 24.7 % (32.4-45.2); HEMOGLOBIN 8.7 GM/dL (10.7-15.3); LYMPH % 12.9 % (8-40); MCH 33.1 pg (25.7-33.7); MEAN CELL VOLUME 94.6 fl (80-96); MEAN PLT VOLUME 9.4 fl (7.5-11.1); MONO % 5.6 % (3.8-10.2); NEUT % 79.3 % (42.8-82.8); PLATELET COUNT 162 K/MM3 (134-434); RBC 2.61 M/mm3 (3.60-5.2); RDW 13.2 % (11.6-15.6); WHITE BLOOD COUNT 8.3 K/mm3 (4.0-10.0)
[2019-06-06 07:39] LABS: ALBUMIN 2.2 g/dl (3.4-5.0); BILIRUBIN,TOTAL 0.3 mg/dL (0.2-1); BLOOD UREA NITROGEN 4.7 mg/dL (7-18); CALCIUM 7.9 mg/dL (8.5-10.1); CREATININE 0.4 mg/dL (0.55-1.3); MAGNESIUM 1.8 mg/dL (1.8-2.4); POTASSIUM 3.8 mmol/L (3.5-5.1); TOT PROT 5.4 g/dl (6.4-8.2)
[2019-06-06 08:37] VITALS: BP 90/48; PULSE 105; TEMP 98.2
--- NOTE | 2019-06-06 08:48 | DS ---
DATE OF ADMISSION:06/05/2019 DATE OF DISCHARGE: REASON FOR CONSULTATION: at 27 weeks, URI and hypotension. HISTORY OF PRESENT ILLNESS: The patient is a 38-year-old female, 3, para 2, with 1 previous and 1 vaginal after the , currently 27 weeks . She was admitted due to complaint of presyncope at home. The patient states that she has been coughing for 1 week and she has this persistent dry cough. Last night she was coughing so much she could not sleep, and this morning when she woke up she was tired and has been running around all taking care of her children and felt dizzy in the afternoon and felt like she was passing out. She was light headed. She came to the emergency room and found to be hypotensive. She is admitted for observation and workup of hypotension. PAST MEDICAL HISTORY: Significant for once and 1 vaginal delivery. She has a history of eczema, sinusitis, migraines and IBS. ALLERGIES: PENICILLIN. HABITS: She does not smoke. No history of alcohol or drug abuse. MEDICATIONS: vitamins, hydroxyprogesterone caproate for short cervix. REVIEW OF SYSTEMS: She was not complaining of any abdominal pain and denied and nausea, vomiting or diarrhea. No fever or chills. PHYSICAL EXAMINATION: Vital Signs: On admission the blood pressure was 108/77, temperature 98.4, and pulse rate was 108. Pulse oximetry was 98%. General: She was in no distress, alert, oriented, and comfortable. Abdomen: Soft, nontender. No distention. No CVA tenderness. Bowel sounds were present. Uterine fundus was at 27 weeks' gestation. Uterus was nontender. heart was category 1 for 27 weeks and no deceleration and no contraction. Pelvic: Exam was deferred. DIAGNOSTIC STUDIES: Her white count was 17,000 with a shift to the left, hemoglobin 10.5, hematocrit 31. Her electrolytes were normal. Her urine showed no protein. Urine nitrite was negative, 1+ leukocyte esterase, and 15 WBCs. The number of bacteria was 325. IMPRESSION: 1. Upper respiratory infection. 2. Rule out flu. RECOMMENDATIONS: Advised IV hydration with antibiotic, coverage for possible bacterial URI. Infectious Disease consultation, Cardiology consultation, and reevaluation with repeat CBC in the morning. We will follow her in the morning. MAEVE BENNETT M.D. [id number]
--- NOTE | 2019-06-06 09:41 | PN ---
Progress Note (short form) - Note Progress Note: Feels better today, not dizzy, ambulates in the room. Cardiology, ID, FURNITURE REPAIR TECHNICIAN consults appreciated. The patient had previously low normal BP. Vital Signs (72 hours) 06/05/19 06/05/19 06/05/19 10:33 11:00 12:00 Temperature 98.4 F Pulse Rate 129 H Pulse Rate [ 125 H 117 H Apical] Respiratory 22 H 18 16 Rate Blood Pressure 88/55 L Blood Pressure 98/70 88/56 L [Left Arm] O2 Sat by Pulse 99 99 99 Oximetry (%) 06/05/19 06/05/19 06/05/19 12:11 13:20 16:05 Temperature 98.1 F Pulse Rate Pulse Rate [ 108 H 102 H Apical] Respiratory 20 18 Rate Blood Pressure Blood Pressure 108/77 101/68 [Left Arm] O2 Sat by Pulse 99 98 99 Oximetry (%) 06/05/19 06/05/19 06/05/19 17:34 21:00 22:00 Temperature 98.9 F 98 F Pulse Rate 117 H 110 H Pulse Rate [ Apical] Respiratory 20 20 20 Rate Blood Pressure 96/60 104/69 Blood Pressure [Left Arm] O2 Sat by Pulse 99 Oximetry (%) 06/06/19 06/06/19 06/06/19 01:57 05:57 08:00 Temperature 97.9 F 97.9 F 98.2 F Pulse Rate 105 H 106 H 105 H Pulse Rate [ Apical] Respiratory 20 20 18 Rate Blood Pressure 86/53 L 83/43 L 90/48 L Blood Pressure [Left Arm] O2 Sat by Pulse Oximetry (%) PE A&O x4 Neck supple no JVD Lungs are clear heart S1S2 regular-ST on a monitor Abdomen soft, NT No CCE Laboratory Results - last 24 hr 06/05/19 06/05/19 06/05/19 11:25 11:25 11:25 WBC 17.0 H RBC 3.25 L Hgb 10.5 L Hct 31.0 L MCV 95.4 MCH 32.3 MCHC 33.9 RDW 12.9 D Plt Count 209 D MPV 9.9 Absolute Neuts (auto) 15.8 H Neutrophils % 93.2 H D Neutrophils % (Manual) 90.1 H Band Neutrophils % 3.9 Lymphocytes % 3.7 L D Lymphocytes % (Manual) 3.0 L Monocytes % 2.9 L Monocytes % (Manual) 3 L Eosinophils % 0.0 D Eosinophils % (Manual) 0.0 Basophils % 0.2 Basophils % (Manual) 0.0 Myelocytes % (Man) 0 Promyelocytes % (Man) 0 Blast Cells % (Manual) 0 Nucleated RBC % 0 Metamyelocytes 0 Hypochromia 1+ Platelet Estimate Normal Polychromasia 1+ Poikilocytosis 0 Anisocytosis 1+ Macrocytosis 1+ Sodium 136 Potassium 4.0 Chloride 104 Carbon Dioxide 24 Anion Gap 8 BUN 6.3 L Creatinine 0.5 L Est GFR (CKD-EPI)AfAm 143.30 Est GFR (CKD-EPI)NonAf 123.64 Random Glucose 89 Calcium 8.8 Magnesium Iron 89 TIBC 500 H Iron Saturation 17 L Unsaturated IBC 411 H Ferritin Total Bilirubin 0.4 AST 18 ALT 15 Alkaline Phosphatase 99 Total Protein 7.2 Albumin 3.0 L Urine Color Urine Appearance Urine pH Ur Specific [place] Urine Protein Urine Glucose (UA) Urine Ketones Urine Blood Urine Nitrite Urine Bilirubin Urine Urobilinogen Ur Leukocyte Esterase Urine WBC (Auto) Urine RBC (Auto) Urine Casts (Auto) U Epithel Cells (Auto) Urine Bacteria (Auto) Influenza A (Rapid) Negative Influenza B (Rapid) Negative 06/05/19 06/06/19 06/06/19 11:25 06:15 06:15 WBC 8.3 RBC 2.61 L Hgb 8.7 L Hct 24.7 L D MCV 94.6 MCH 33.1 MCHC 35.0 RDW 13.2 Plt Count 162 D MPV 9.4 Absolute Neuts (auto) 6.6 Neutrophils % 79.3 Neutrophils % (Manual) Band Neutrophils % Lymphocytes % 12.9 D Lymphocytes % (Manual) Monocytes % 5.6 D Monocytes % (Manual) Eosinophils % 2.0 D Eosinophils % (Manual) Basophils % 0.2 Basophils % (Manual) Myelocytes % (Man) Promyelocytes % (Man) Blast Cells % (Manual) Nucleated RBC % 0 Metamyelocytes Hypochromia Platelet Estimate Polychromasia Poikilocytosis Anisocytosis Macrocytosis Sodium 138 Potassium 3.8 Chloride 109 H Carbon Dioxide 22 Anion Gap 7 L BUN 4.7 L Creatinine 0.4 L Est GFR (CKD-EPI)AfAm 154.22 Est GFR (CKD-EPI)NonAf 133.06 Random Glucose 74 Calcium 7.9 L Magnesium 1.8 Iron TIBC Iron Saturation Unsaturated IBC Ferritin 14.0 Total Bilirubin 0.3 AST 10 L ALT 9 L Alkaline Phosphatase 73 Total Protein 5.4 L Albumin 2.2 L Urine Color Yellow Urine Appearance Cloudy Urine pH 6.5 Ur Specific [place] 1.009 L Urine Protein Negative Urine Glucose (UA) Negative Urine Ketones Negative Urine Blood Negative Urine Nitrite Negative Urine Bilirubin Negative Urine Urobilinogen 0.2 Ur Leukocyte Esterase 1+ H Urine WBC (Auto) 15 Urine RBC (Auto) 1 Urine Casts (Auto) 8 U Epithel Cells (Auto) 15.2 Urine Bacteria (Auto) 335.0 Influenza A (Rapid) Influenza B (Rapid) Microbiology 06/05/19 11:25 Urine Culture - Final Urine - Urine Clean Catch Normal Urogenital Annia Current Active Problems Problem Status Onset Cough Acute Postural hypotension Acute with 27 completed weeks gestation Acute Syncope and collapse Acute UTI (urinary tract infection) Acute Upper respiratory infection Acute Plan After ECHO will D/C home F/U by FURNITURE REPAIR TECHNICIAN as outpt Office F/u Iron supplements Follow anemia as outpt. Check TFT PO hydration as outpatient Problem List - Problems (1) Syncope and collapse Code(s): R55 - SYNCOPE AND COLLAPSE (2) Cough Code(s): R05 - COUGH (3) UTI (urinary tract infection) Code(s): N39.0 - URINARY TRACT INFECTION, SITE NOT SPECIFIED Qualifiers: Encounter type: initial encounter (4) Anemia Code(s): D64.9 - ANEMIA, UNSPECIFIED Qualifiers: Anemia type: unspecified type Qualified Code(s): D64.9 - Anemia, unspecified
--- NOTE | 2019-06-06 09:43 | DS ---
Physical Examination Vital Signs: Vital Signs Temperature 98.2 F 06/06/19 08:00 Pulse Rate 105 H 06/06/19 08:00 Respiratory Rate 18 06/06/19 08:00 Blood Pressure 90/48 L 06/06/19 08:00 O2 Sat by Pulse Oximetry (%) 99 06/05/19 21:00 Constitutional: Yes: Well Nourished, No Distress Eyes: Yes: Conjunctiva Clear, EOM Intact HENT: Yes: Atraumatic, Normocephalic Neck: Yes: Supple, Trachea Midline Cardiovascular: Yes: Regular Rate and Rhythm, Tachycardia, S1, S2 Respiratory: Yes: Regular, CTA Bilaterally Gastrointestinal: Yes: Normal Bowel Sounds, Soft ...Rectal Exam: Yes: Deferred Renal/: No: Anuria Musculoskeletal: Yes: WNL Extremities: Yes: WNL Edema: No Peripheral Pulses WNL: Yes Integumentary: Yes: WNL ...Motor Strength: WNL Psychiatric: Yes: WNL Labs: CBC, BMP 06/06/19 06:15 06/06/19 06:15 Discharge Summary Problems reviewed: Yes Reason For Visit: PRE SYNCOPE Current Active Problems Cough (Acute) Postural hypotension (Acute) with 27 completed weeks gestation (Acute) Syncope and collapse (Acute) UTI (urinary tract infection) (Acute) Upper respiratory infection (Acute) Condition: Improved - Instructions - Home Medications Comprehensive Discharge Medication List: Ambulatory Orders Vitamins (Sjr) - 1 tab PO DAILY 06/02/13 Hydroxyprogesterone Caproat/Pf [Hydroxyprogest 250 mg/ml Vial] 1 mg SQ WEEKLY
[2019-06-06] MEDS ORDERED: CEFTRIAXONE 1 GM in DEXTROSE 5%-WATER - 50 ML IVPB SCH (10:00)
[2019-06-06] MEDS ORDERED: CEFTRIAXONE 2 GM in DEXTROSE 5%-WATER 100 ML IVPB SCH (10:00)
[2019-06-06] MEDS ORDERED: PRENATAL VITAMINS W/ FOLIC ACID TABLET (FP) PO SCH (10:00)
--- NOTE | 2019-06-06 10:24 | PN ---
Progress Note, Physician Chief Complaint: ambulating no cp or sob no dizziness feeling better TELE: Sinus, st - Current Medication List Current Medications: Active Medications Lactated Ringer's (Lactated Ringers Solution) 1,000 ml in 1,000 mls @ 100 mls/ hr IV ASDIR JOHN Last Admin: 06/06/19 03:01 Dose: 100 mls/hr Ceftriaxone Sodium 2 gm/ (Dextrose) 100 mls @ 200 mls/hr IVPB DAILY JOHN; Protocol Non-Formulary Medication (Hydroxyprogesterone Caproat/Pf [Hydroxyprogest 250 Mg/ Ml Vial]) 1 mg SQ Q7D JOHN Multivit/Folic Acid/Iron ( Vitamins (Sjr) -) 1 tab PO DAILY JOHN - Objective Vital Signs: Vital Signs Temperature 98.2 F 06/06/19 08:00 Pulse Rate 105 H 06/06/19 08:00 Respiratory Rate 18 06/06/19 08:00 Blood Pressure 90/48 L 06/06/19 08:00 O2 Sat by Pulse Oximetry (%) 99 06/05/19 21:00 Constitutional: Yes: Calm Cardiovascular: Yes: Regular Rate and Rhythm Respiratory: Yes: CTA Bilaterally Gastrointestinal: Yes: Soft Edema: No Neurological: Yes: Alert, Oriented Labs: CBC, BMP 06/06/19 06:15 06/06/19 06:15 Assessment/Plan Assessment/Plan ECG: sinus tach, non-path q's inferior leads, normal intervals = WNL presyncope: -highly likely orthostatic hypotension: occurred in setting of limited sleep last night with profuse coughing (-->insensible fluid losses) on top of 7 days or so of ongoing coughing fits, in vasodilated state of , with no PO intake. -sx's only occurred while in upright posture off and on throughout the AM until more severe episode occurred. -no suspicious arrhythmia sx's, ecg normal intervals. -no clinical findings suspicious for PE (sinus tach with normal sats here highly likely sec to vol depleted/vasodilated state, +/- residual ongoing URI with cough) -tele without sig arrhythmias -check echo (not in timing of where she's at risk for charlette- CMP , no findings of CHF on exam) -cont IVF--bp/hr trend improving with hydration; per PMD baseline BP runs low -if feels continues to feel well and VSs continue to improve, anticipate she will be ready for d/c today after echo
--- NOTE | 2019-06-06 11:08 | ECHO ---
Name: NED GALINDO Exam:Adult Echocardiogram Study Date: 06/06/2019 10:31 AM Age: 38 yrs Reason For Study: CHF Height: 66 in Weight: 165 lb BSA: 1.8 m2 MMode/2D Measurements & Calculations IVSd: 0.88 cm Ao root diam: 2.8 cm LVIDd: 4.2 cm LA dimension: 3.2 cm LVIDs: 2.4 cm LVPWd: 0.95 cm EDV(Teich): 80.3 ml LVOT diam: 2.0 cm ESV(Teich): 20.6 ml LAV (MOD-bp): 56.5 ml Doppler Measurements & Calculations MV E max gulshan: 100.0 cm/sec Ao V2 max: 165.6 cm/sec MV A max gulshan: 106.7 cm/sec Ao max P.0 mmHg MV E/A: 0.94 MV dec time: 0.08 sec RUPA(V,D): 2.3 cm2 LV V1 max P.1 mmHg TR max gulshan: 210.4 cm/sec LV V1 max: 123.2 cm/sec TR max P.8 mmHg PA V2 max: 126.2 cm/sec Med Peak E' Gulshan: 9.4 cm/sec PA max P.4 mmHg Med E/e': 10.7 Lat Peak E' Gulsh[place]: 11.1 cm/sec Lat E/e': 9.0 PI Vmax: 123.5 cm/sec Left Ventricle The left ventricular size, thickness and function are normal. Left Ventricular Filling pattern is nor mal for age. The left ventricular wall motion is normal. Right Ventricle The right ventricle is normal in size and function. Atria Normal left and right atrial size and function. Mitral Valve The mitral valve is normal in structure and function. There is no mitral valve stenosis. There is mil d mitral regurgitation. Tricuspid Valve The tricuspid valve is normal in structure and function. There is mild tricuspid regurgitation. Right ventricular systolic pressure is normal. Aortic Valve The aortic valve is trileaflet. No hemodynamically significant valvular aortic stenosis. No aortic regurgitation is present. Pulmonic Valve The pulmonic valve is not well seen, but is grossly normal. There is no pulmonic valvular stenosis. T here is no pulmonic valvular regurgitation. Great Vessels The aortic root is normal size. Pericardium/Pleura There is no pericardial effusion. Interpretation Summary The left ventricular size, thickness and function are normal The right ventricle is normal in size and function. There is mild mitral regurgitation. There is mild tricuspid regurgitation. Right ventricular systolic pressure is normal. There is no pericardial effusion. MD Bonilla *Milvia 06/06/2019 11:08 AM
--- NOTE | 2019-06-06 13:04 | EKG ---
Test Reason : Blood Pressure : / mmHG Vent. Rate : 114 BPM Atrial Rate : 114 BPM P-R Int : 134 ms QRS Dur : 078 ms QT Int : 338 ms P-R-T Axes : 051 036 031 degrees QTc Int : 465 ms SINUS TACHYCARDIA OTHERWISE NORMAL ECG WHEN COMPARED WITH ECG OF 05-JUN-2019 10:36, NO SIGNIFICANT CHANGE WAS FOUND Confirmed by BARBI SAMPSON MD ([id number]) on 06/06/2019 1:04:16 PM Referred By: RAYRAY TSAI DR Confirmed By:BARBI SAMPSON MD
== END 2019-06-06 13:35 | disposition home or self-care (01) ==
LOC: JER 10:18 → JERBED 14:58 → INTOOBSV 14:58 → UNDOADMOB 14:58 → JERBED 20:49 → J4W 20:49 → JERBED 06-06 09:36 → J4W 06-06 09:36
PROVIDERS: ADMIT Internal Medicine; ATTEND Internal Medicine
PROC: 3E03329 Introduction of Other Anti-infective into Peripheral Vein, Percutaneous Approach (ICD-10-PCS; principal; 2019-06-06)
PROC: 3E0337Z Introduction of Electrolytic and Water Balance Substance into Peripheral Vein, Percutaneous Approach (ICD-10-PCS; 2019-06-06)
DX: O26.52 Maternal hypotension syndrome, second trimester (principal); O23.42 Unspecified infection of urinary tract in pregnancy, second trimester; O99.012 Anemia complicating pregnancy, second trimester; R55 Syncope and collapse; Z3A.27 27 weeks gestation of pregnancy; R00.0 Tachycardia, unspecified; Z88.0 Allergy status to penicillin; R05 Cough; D72.829 Elevated white blood cell count, unspecified; J06.9 Acute upper respiratory infection, unspecified; R82.81 Pyuria
CPT/HCPCS: 36415; 80053; 81003; 82728; 83540; 83550; 83735; 84439; 84443; 85025; 87040; 87086; 87804; 93005; 93010; 93306-TC; 99285-25; G0378

== ENCOUNTER 2019-08-23 05:05 | Inpatient (IN) | payer BC, OTHER ==
[2019-08-23 07:56] VITALS: BMI 28.5
[2019-08-23] MEDS ORDERED: DEXTROSE 5%-LACTATED RINGERS 1,000 ML IV SCH (09:00)
[2019-08-23] MEDS ORDERED: CLINDAMYCIN 900 MG PREMIX IVPB 900 MG/50 ML BAG IVPB ONE (09:00)
[2019-08-23] MEDS ORDERED: CLINDAMYCIN PHOSPHATE 600 MG/4 ML VIAL ONE (09:16)
[2019-08-23 09:33] LABS: BASO % 0.1 % (0-2.0); EOS % 0.4 % (0-4.5); HEMATOCRIT 31.1 % (32.4-45.2); HEMOGLOBIN 10.5 GM/dL (10.7-15.3); MCH 32.8 pg (25.7-33.7); MCHC 33.7 g/dl (32.0-36.0); MEAN CELL VOLUME 97.1 fl (80-96); MEAN PLT VOLUME 9.8 fl (7.5-11.1); MONO % 6.8 % (3.8-10.2); NEUT % 77.7 % (42.8-82.8); PLATELET COUNT 146 K/MM3 (134-434); RDW 17.1 % (11.6-15.6); WHITE BLOOD COUNT 6.7 K/mm3 (4.0-10.0)
[2019-08-23 10:10] LABS: BLOOD UREA NITROGEN 4.9 mg/dL (7-18); CALCIUM 8.3 mg/dL (8.5-10.1); CREATININE 0.5 mg/dL (0.55-1.3); POTASSIUM 3.6 mmol/L (3.5-5.1)
[2019-08-23 10:43] LABS: PROTHROMBIN TIME (PATIENT) 11.8 SEC (9.7-13.0)
[2019-08-23 10:46] LABS: ACTIVATED PTT 26.7 SECONDS (25.2-36.5)
[2019-08-23] MEDS ORDERED: FENTANYL/BUPIVACAINE/NS/PF - PCEA - 50 ML DISP.SYRIN EP ONE ×2 (11:16→11:23)
[2019-08-23] MEDS ORDERED: LIDO 2%/EPI 1:200000 PRESRVFRE (20 ML SDVIAL) ONE (11:19)
[2019-08-23] MEDS ORDERED: BUPIVACAINE HCL/PF 0.25% (2.5MG/ML) 10 ML VIAL ONE (11:19)
[2019-08-23] MEDS ORDERED: ELECTROLYTE-148 SOLN 1,000 ML IV SCH (11:30)
--- NOTE | 2019-08-23 11:33 | HP ---
Past Medical History - Primary Care Physician PCP:: Mike Barksdale - Admission Chief Complaint: 38yo P 2 with at EGA 38w4d admitted with PROM since at 3am and now in spontaneous early labor. History of Present Illness: complicated by: 1. 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 Cardiovascular: No: AFIB, Aneurysm, Aortic Insufficiency, Aortic Stenosis, CAD, CHF, Deep Vein Thrombosis, HTN, Hyperlipdemia, CA, Mitral Insufficiency, Mitral Stenosis, Murmur, Pulmonary Hypertension, Other Pulmonary: No: Asthma, Bronchitis, Cancer, COPD, O2 Dependent, Pneumonia, Previously Intubated, Pulmonary Embolus, Pulmonary Fibrosis, Sleep Apnea, Other Gastrointestinal: Yes: Diverticulitis Hepatobiliary: No: Cirrhosis, Cholelithiasis, Cholecystitis, Choledocholithiasis , Hepatitis A, Hepatitis B, Hepatitis C, Other Renal/: No: Renal Failure, Renal Inusuff, BPH, Cancer, Hematuria, Hemodialysis , Neurogenic Bladder, Renal Calculi, UTI, Other Reproductive: No: Ectopic , Endometriosis, Fibroids, PID, Polycystic Ovary Syndrome, Postmenopausal, Other ...: 5 ...Para: 2 ...Term: 1 ( x 1) ...: 1 ( at 36wk (breech)) ...Spon : 2 ...Induced : 0 ...Multiple Gestation: 0 ... Weeks Gestation by Dates: 38.4 ...EDC by Sono: 09/03/19 Heme/Onc: Yes: Anemia Infectious Disease: No: AIDS, C-Diff, Herpes Zoster, HIV, MRSA, STD's, Tuberculosis, VREF, Other Psych: No: Addictions, Anxiety, Bipolar, Depression, Panic, Psychosis, Schizophrenia, Other Musculoskeletal: No: Bursitis, Chronic low back pain, Hemiparesis, Hemiplegia, Osteoarthritis, Paraplegia, Other Rheumatology: No: Fibromyalgia, Gout, Lupus, Rheumatoid Arthritis, Sarcoidosis, Vasculitis, Other ENT: Yes: Other (H/o Mastoiditis (2014)) Dermatology: Yes: Eczema - Past Surgical History Past Surgical History: Yes: (At 36wk, breech) Hx Myomectomy: No Hx Transabdominal Cerclage: No - Smoking History Smoking history: Never smoked Have you smoked in the past 12 months: No Aproximately how many cigarettes per day: 0 - Alcohol/Substance Use Hx Alcohol Use: No History of Substance Use: reports: None - Social History Usual Living Arrangement: Yes: With Child Do you think of yourself as: Straight/Heterosexual ADL: Independent 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 - Review of Systems Constitutional: reports: Other (contractions) Eyes: reports: No Symptoms HENT: reports: No Symptoms Neck: reports: No Symptoms Cardiovascular: reports: No Symptoms Respiratory: reports: No Symptoms Gastrointestinal: reports: No Symptoms Genitourinary: reports: No Symptoms Breasts: reports: No Symptoms Reported Musculoskeletal: reports: No Symptoms Integumentary: reports: No Symptoms Neurological: reports: No Symptoms Endocrine: reports: No Symptoms Hematology/Lymphatic: reports: No Symptoms Psychiatric: reports: No Symptoms Pain Intensity: 6 Physical Exam - Maternity Vital Signs: Vital Signs Temperature 98.4 F 08/23/19 11:00 Pulse Rate 112 H 08/23/19 11:00 Respiratory Rate 18 08/23/19 11:00 Blood Pressure 99/69 08/23/19 11:00 O2 Sat by Pulse Oximetry (%) Constitutional: Yes: Well Nourished, No Distress, Calm Eyes: Yes: WNL, Conjunctiva Clear, EOM Intact HENT: Yes: WNL, Atraumatic, Normocephalic Neck: Yes: WNL, Supple, Trachea Midline Cardiovascular: Yes: WNL, Regular Rate and Rhythm Lungs: Clear to auscultation, Normal air movement - Abdominal Exam/OB Fundal Height: 38 Number of Fetuses: Single Presentation: Vertex Contractions: Yes Regularity: Irregular Intensity: Mild Monitor Mode: External Heart Rate (range): 140 Heart Rate Location: Midline Category: I Accelerations: Uniform Decelerations: None - Vaginal Exam/OB Vaginal Bleediing: Yes, Bloody Show, Old Blood Speculum Exam: No Dilatation (cm): 4 Effacement (%): 80 Amniotic Membrane Status: Leaking Nitrazine Test: Positive Amniotic Fluid: Yes: Clear Presentation: Vertex/Position Station: -3 (Adequate pelvimetry) - Physical Exam Musculoskeletal: Yes: WNL Extremities: Yes: WNL Edema: No Integumentary: Yes: WNL Deep Tendon Reflex Grade: Normal +2 ...Motor Strength: WNL Psychiatric: Yes: WNL, Alert, Oriented - Labs Lab Results: CBC, BMP 08/23/19 08:48 08/23/19 08:48 Hemorrhage Risk Assessment - Risk Factors Medium Risk Factors: Yes: None High Risk Factors: Yes: None Risk Score: 1 Risk Level: Medium Risk Imaging - Results Ultrasound: Report Reviewed Assessment/Plan 38yo P 2 with at EGA 38w4d admitted with PROM since 08/22/2019 and now in spontaneous early labor. Pt is now beginning to contract more and requested epidural for pain mgt. She desires TOLAC/. 1. Admit to L&D 2. Pt is s/p primary LT C/S in the past w/o other uterine surgery or contraindications to TOLAC/ 3. Consents reviewed and signed. Reviewed risks of Trial of Labor after section, including but not limited to: - Risks of failed trial of labor resulting in a repeat delivery in approximately 20-40% of patients who are attempting - Risks of uterine rupture and/or uterine scar dehiscence resulting in emergency delivery (0.2 - 1.5% risk) - Risks of hemorrhage, DIC, hysterectomy, blood transfusion, injury to surrounding organs, need for additional future surgery, etc. - Potential increase in risks of complications if failed - Risks of severe neurologic compromise/injury, or - Rare risks of maternal 4. GBS negative but PROM > 24hrs. No evidence of chorio at this time. 5. FHT is Category I and fetus requires no intervention 6. Anesthesia and Fan notified of patients TOLAC. 7. Plan to monitor labor progress.
[2019-08-23] MEDS ORDERED: NALOXONE HCL 0.4 MG/ML VIAL IVPUSH PRN (11:45)
[2019-08-23] MEDS ORDERED: FENTANYL/BUPIVACAINE/NS/PF - PCEA - 50 ML DISP.SYRIN EP SCH (11:45)
[2019-08-23] MEDS ORDERED: OXYTOCIN 20 UNITS in 0.9% NS 20 UNIT/1,000 ML INFUS.BAG IV ONE (14:27)
[2019-08-23] MEDS: OXYTOCIN 20 UNITS in 0.9% NS 20 UNIT/1,000 ML INFUS.BAG IV SCH ×2 (14:32→18:15)
[2019-08-23] MEDS ORDERED: CLINDAMYCIN 600MG PREMIX IVPB 600 MG/50 ML BAG IVPB SCH (15:00)
[2019-08-23] MEDS ORDERED: BISACODYL 10 MG SUPP.RECT RC PRN (17:16)
[2019-08-23] MEDS ORDERED: METHYLERGONOVINE MALEATE 0.2 MG/1 ML AMP IM PRN (17:16)
[2019-08-23] MEDS ORDERED: WITCH HAZEL 50% (TUCKS) 40 PAD/JAR PAD TP PRN (17:16)
[2019-08-23] MEDS ORDERED: BENZOCAINE 28 GM HEMORRHOIDAL OINTMENT TP PRN (17:16)
[2019-08-23] MEDS ORDERED: BENZOCAINE 20% 57 GM BOTTLE TP PRN (17:16)
--- NOTE | 2019-08-23 17:21 | PN ---
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
[2019-08-23] MEDS: IBUPROFEN 600 MG TABLET (FP) PO PRN (23:00)
[2019-08-24] MEDS: IBUPROFEN 600 MG TABLET (FP) PO PRN ×2 (07:31→16:01)
[2019-08-24] MEDS: ACETAMINOPHEN 325 MG TABLET (FP) PO PRN ×2 (07:32→16:02)
[2019-08-24] MEDS: FERROUS SO4 325 MG TABLET (FP) PO SCH (07:33)
[2019-08-24 08:47] LABS: BASO % 0.2 % (0-2.0); EOS % 1.5 % (0-4.5); HEMOGLOBIN 10.6 GM/dL (10.7-15.3); LYMPH % 10.8 % (8-40); MCH 33.6 pg (25.7-33.7); MCHC 34.4 g/dl (32.0-36.0); MEAN CELL VOLUME 97.7 fl (80-96); MEAN PLT VOLUME 9.8 fl (7.5-11.1); MONO % 5.3 % (3.8-10.2); NEUT % 82.2 % (42.8-82.8); PLATELET COUNT 154 K/MM3 (134-434); RBC 3.17 M/mm3 (3.60-5.2); RDW 17.1 % (11.6-15.6); WHITE BLOOD COUNT 8.6 K/mm3 (4.0-10.0)
[2019-08-24] MEDS: PRENATAL VITAMINS W/ FOLIC ACID TABLET (FP) PO SCH (10:50)
--- NOTE | 2019-08-24 15:16 | PN ---
Post Progress Note - Subjective Subjective: Patient without acute complaints. Reports tolerating oral intake without nausea or vomiting. Ambulating without dizziness. Denies fevers or chills. Pain well controlled with oral pain medication. Pumping/breast feeding without issue. Passing flatus, no BM. Post Day: 1 Type of Delivery: Vital Signs: Vital Signs Temperature 98.2 F 08/24/19 14:10 Pulse Rate 94 H 08/24/19 14:10 Respiratory Rate 08/24/19 14:10 Blood Pressure 98/61 08/24/19 14:10 O2 Sat by Pulse Oximetry (%) 100 08/23/19 15:00 Breast Exam: Yes: Soft Uterus: Yes: Fundus Firm, Fundus below umbilicus, Non-tender Abdomen/GI: Yes: Abdomen soft, Passing flatus, Tolerating PO Lochia: Yes: Rubra Lochia, amount: Small Extremities: Yes: Calves non-tender Perineum: Yes: Intact Activity: Ambulating - Labs Labs: CBC WBC 8.6 K/mm3 (4.0-10.0) 08/24/19 08:25 RBC 3.17 M/mm3 (3.60-5.2) L 08/24/19 08:25 Hgb 10.6 GM/dL (10.7-15.3) L 08/24/19 08:25 Hct 31.0 % (32.4-45.2) L 08/24/19 08:25 MCV 97.7 fl (80-96) H 08/24/19 08:25 MCH 33.6 pg (25.7-33.7) 08/24/19 08:25 MCHC 34.4 g/dl (32.0-36.0) 08/24/19 08:25 RDW 17.1 % (11.6-15.6) H 08/24/19 08:25 Plt Count 154 K/MM3 (134-434) 08/24/19 08:25 MPV 9.8 fl (7.5-11.1) 08/24/19 08:25 Absolute Neuts (auto) 7.1 K/mm3 (1.5-8.0) 08/24/19 08:25 Neutrophils % 82.2 % (42.8-82.8) 08/24/19 08:25 Lymphocytes % 10.8 % (8-40) D 08/24/19 08:25 Monocytes % 5.3 % (3.8-10.2) 08/24/19 08:25 Eosinophils % 1.5 % (0-4.5) D 08/24/19 08:25 Basophils % 0.2 % (0-2.0) 08/24/19 08:25 Nucleated RBC % 0 % (0-0) 08/24/19 08:25 Assessment/Plan 38yo P3 s/p doing well stable, afebrile. Asymptomatic for anemia. care instructions reviewed. Continue routine care. Ambulation encouraged Discharge instruction reviewed.
--- NOTE | 2019-08-24 15:19 | DS ---
Physical Exam-BONE GRINDER Vital Signs: Vital Signs Temperature 98.2 F 08/24/19 14:10 Pulse Rate 94 H 08/24/19 14:10 Respiratory Rate 20 08/24/19 14:10 Blood Pressure 98/61 08/24/19 14:10 O2 Sat by Pulse Oximetry (%) 100 08/23/19 15:00 Constitutional: Yes: Well Nourished, No Distress, Calm Eyes: Yes: WNL, Conjunctiva Clear, EOM Intact HENT: Yes: WNL, Atraumatic, Normocephalic Neck: Yes: WNL, Supple, Trachea Midline Cardiovascular: Yes: WNL, Regular Rate and Rhythm Respiratory: Yes: WNL, Regular, CTA Bilaterally Gastrointestinal: Yes: WNL, Normal Bowel Sounds, Soft ...Rectal Exam: Yes: Deferred Renal/: Yes: WNL Internal Exam Deferred: Yes ....Post : Yes: Uterus firm, Uterus non-tender, Slight lochia rubra Breast(s): Yes: WNL Musculoskeletal: Yes: WNL Extremities: Yes: WNL Edema: No Integumentary: Yes: WNL Neurological: Yes: WNL, Alert, Oriented ...Motor Strength: WNL Psychiatric: Yes: WNL, Alert, Oriented Labs: CBC, BMP 08/24/19 08:25 08/23/19 08:48 Delivery - Delivery Vaginal Delivery: No Problems, V-Jacqui Type of Anesthesia: Epidural Episiotomy/Laceration: None EBL (cc): 250 Delivery, Single - Stages of Labor Date 1st Stage Initiatied: 08/23/19 Time 1st Stage Initiated: 12:50 Date 2nd Stage Initiated: 08/23/19 Time 2nd Stage Initiated: 14:00 Date of Delivery: 08/23/19 Time of Delivery: 14:32 Time Placenta Delivered: 14:34 Placenta: Yes: Spontaneous, Normal Configuration - Condition of Television Announcer/Property Claims Manager Present: No Infant Gender: Female Weight: 3.203 kg Position: Left, OA Total Hours ROM (Hrs/Mins): 35hrs/34mins - 1 Minute Total Score: 9 5 Minutes Total Score: 9 - Feeding Plan Initial Plan: Exclusive throughout hospitalization Benefits of Exclusively reinforced: Yes Remarks - Remarks Remarks: w/o complications Discharge Summary Problems reviewed: Yes Reason For Visit: LABOR ADMIT Spontaneous labor at term Procedures: Principal: Hospital Course: Normal recovery Goals: Full recovery and care. Condition: Good - Instructions Diet, Activity, Other Instructions: Physical activity Resume your normal everyday activity as tolerated no heavy lifting or exercise until seen by your surgeon. You may walk unlimited ruel of and climb stairs. You may resume driving the car when you feel safe and comfortable behind the wheel. No sexual activity as instructed. Wound care If you have a bandage, leave it on, and keep dry for 48-72 hours. After that time discard the outer bandage. If they are tapes on the skin under the out of bandage leave them in place. They will peel off in the next 7 to 10 days. Do Not Peel them off. You may shower the day after surgery. If there are tapes present on the skin, you may shower over them. Diet There are no dietary restrictions. Eat healthy, high-fiber foods. Drink 6 to 8 glasses of liquid each day. This will assist in keeping your bowels are regular. Pain management You may take Tylenol or acetaminophen or Ibuprofen (for example, Motrin, Advil etc.) from my pain prescription medication is ordered should be taken as prescribed for moderate to severe pain. Call MD for any of the following: Severe pain not relieved by medication Fever of 101 or higher Excessive bleeding or drainage on dressing Inability to urinate Referrals: Mike Barksdale MD [Staff Physician] - 1 Month Disposition: HOME - Home Medications Comprehensive Discharge Medication List: Ambulatory Orders Ferrous Sulfate [Feosol] 325 mg PO BID 08/23/19 Pnv No.95/Ferrous Fum/Folic AC [ Vitamin Tablet] 1 each PO DAILY Prescription Drug Monitoring Program (I-STOP) results: I-STOP not reviewed
[2019-08-24] MEDS ORDERED: SENNOSIDES/DOCUSATE COMBO (SENNA PLUS) TABLET (UD) PO PRN (22:00)
[2019-08-25] MEDS: IBUPROFEN 600 MG TABLET (FP) PO PRN (08:30)
[2019-08-25] MEDS: FERROUS SO4 325 MG TABLET (FP) PO SCH (08:30)
[2019-08-25] MEDS: ACETAMINOPHEN 325 MG TABLET (FP) PO PRN (08:31)
[2019-08-25] MEDS: PRENATAL VITAMINS W/ FOLIC ACID TABLET (FP) PO SCH (09:49)
--- NOTE | 2019-08-25 09:54 | PN ---
Post Progress Note - Subjective Subjective: pt w/o complaints and doing well. Post Day: 2 Type of Delivery: Vital Signs: Vital Signs Temperature 98.2 F 08/24/19 22:39 Pulse Rate 88 08/24/19 22:39 Respiratory Rate 20 08/24/19 22:39 Blood Pressure 111/69 08/24/19 22:39 O2 Sat by Pulse Oximetry (%) 100 08/23/19 15:00 Breast Exam: Yes: Soft Uterus: Yes: Fundus Firm, Fundus below umbilicus, Non-tender Abdomen/GI: Yes: Abdomen soft, Passing flatus, Tolerating PO Lochia: Yes: Rubra Lochia, amount: Small Extremities: Yes: Calves non-tender Perineum: Yes: Intact Activity: Ambulating - Labs Labs: CBC WBC 8.6 K/mm3 (4.0-10.0) 08/24/19 08:25 RBC 3.17 M/mm3 (3.60-5.2) L 08/24/19 08:25 Hgb 10.6 GM/dL (10.7-15.3) L 08/24/19 08:25 Hct 31.0 % (32.4-45.2) L 08/24/19 08:25 MCV 97.7 fl (80-96) H 08/24/19 08:25 MCH 33.6 pg (25.7-33.7) 08/24/19 08:25 MCHC 34.4 g/dl (32.0-36.0) 08/24/19 08:25 RDW 17.1 % (11.6-15.6) H 08/24/19 08:25 Plt Count 154 K/MM3 (134-434) 08/24/19 08:25 MPV 9.8 fl (7.5-11.1) 08/24/19 08:25 Absolute Neuts (auto) 7.1 K/mm3 (1.5-8.0) 08/24/19 08:25 Neutrophils % 82.2 % (42.8-82.8) 08/24/19 08:25 Lymphocytes % 10.8 % (8-40) D 08/24/19 08:25 Monocytes % 5.3 % (3.8-10.2) 08/24/19 08:25 Eosinophils % 1.5 % (0-4.5) D 08/24/19 08:25 Basophils % 0.2 % (0-2.0) 08/24/19 08:25 Nucleated RBC % 0 % (0-0) 08/24/19 08:25 Assessment/Plan 38yo P3 s/p doing well stable, afebrile. Asymptomatic for anemia. care instructions reviewed. Continue routine care. Ambulation encouraged Discharge instruction reviewed.
[2019-08-25 10:25] VITALS: BP 125/72; PULSE 99; TEMP 98.1
[2019-08-25 12:51] LABS: POC NITRAZINE NEG
[2019-08-25 12:52] LABS: POC NITRAZINE POS
== END 2019-08-25 14:20 | disposition home or self-care (01) | DRG 807 ==
LOC: JDEL 05:05 → JLDR 06:30 → J3W 18:39
PROVIDERS: ADMIT Obstetrics & Gynecology; ATTEND Obstetrics & Gynecology
PROC: 10E0XZZ Delivery of Products of Conception, External Approach (ICD-10-PCS; principal; 2019-08-23)
DX: O42.92 Full-term premature rupture of membranes, unspecified as to length of time between rupture and onset of labor (principal); Z37.0 Single live birth; O34.211 Maternal care for low transverse scar from previous cesarean delivery; N85.8 Other specified noninflammatory disorders of uterus; O99.013 Anemia complicating pregnancy, third trimester; Z3A.38 38 weeks gestation of pregnancy
CPT/HCPCS: 36415; 59409; 80048; 82962; 83986-QW; 85025; 85610; 85730; 86593; 86850; 86900; 86901; 87389

== ENCOUNTER 2020-11-01 12:02 | Emergency (ER) | payer BC, OTHER ==
[2020-11-01 12:07] VITALS: TEMP 98.5; BMI 27.8
[2020-11-01] MEDS ORDERED: LACTATED RINGERS SOLUTION 1000 ML INFUS.BAG IV ONE ×2 (12:35→13:50)
[2020-11-01 13:19] LABS: EOS % 2.4 % (0-4.5); HEMATOCRIT 39.5 % (32.4-45.2); HEMOGLOBIN 13.6 GM/dL (10.7-15.3); LYMPH % 21.8 % (8-40); MCH 33.1 pg (25.7-33.7); MCHC 34.5 g/dl (32.0-36.0); MEAN CELL VOLUME 95.9 fl (80-96); MEAN PLT VOLUME 9.9 fl (7.5-11.1); MONO % 6.3 % (3.8-10.2); NEUT % 68.5 % (42.8-82.8); PLATELET COUNT 279 K/MM3 (134-434); RBC 4.12 M/mm3 (3.60-5.2); RDW 13.7 % (11.6-15.6); WHITE BLOOD COUNT 6.7 K/mm3 (4.0-10.0)
[2020-11-01 13:37] LABS: HCG,QUALITATIVE URINE Negative
[2020-11-01 13:42] LABS: EPI CELLS 3 /uL (0-25.1); HYALINE CASTS 0 /uL (0-3.1); URINE APPEARANCE CLEAR; URINE BACTERIA 162 /uL (0-1359); URINE BILIRUBIN NEGATIVE (NEGATIVE); URINE COLOR YELLOW; URINE GLUCOSE (UA) NEGATIVE (NEGATIVE); URINE KETONE NEGATIVE (NEGATIVE); URINE LEUK ESTERASE NEGATIVE (NEGATIVE); URINE NITRITE NEGATIVE (NEGATIVE); URINE PROTEIN NEGATIVE (NEGATIVE); URINE RBC 111 /uL (0-23.9); URINE UROBILINOGEN 0.2 mg/dL (0.2-1.0); URINE WBC 6 /uL (0-25.8)
[2020-11-01 13:49] LABS: BLOOD UREA NITROGEN 10.8 mg/dL (7-18); CALCIUM 9.2 mg/dL (8.5-10.1)
[2020-11-01 13:50] LABS: ALBUMIN 3.9 g/dl (3.4-5.0)
[2020-11-01 13:52] LABS: CREATININE 0.6 mg/dL (0.55-1.3)
[2020-11-01 13:54] LABS: BILIRUBIN,TOTAL 0.4 mg/dL (0.2-1)
[2020-11-01 15:03] VITALS: BP 118/78; PULSE 87
== END 2020-11-01 15:03 | disposition home or self-care (01) ==
LOC: JER 12:02
DX: E86.0 Dehydration (principal)
CPT/HCPCS: 36415; 80053; 81003; 84703; 85025; 87086; 99284-25; C9803; U0003; U0005

== ENCOUNTER 2024-02-27 15:15 | Emergency (ER) | payer BC, OTHER ==
[2024-02-27 15:32] VITALS: RESP 18; TEMP 97.5; BMI 29.7
[2024-02-27 17:58] LABS: BASO % 0.2 % (0-2.0); EOS % 0.2 % (0-4.5); LYMPH % 12.5 % (8-40); MCH 31.7 pg (25.7-33.7); MCHC 33.3 g/dl (32.0-36.0); MEAN CELL VOLUME 95.2 fl (80-96); MEAN PLT VOLUME 9.5 fl (7.5-11.1); NEUT % 81.1 % (42.8-82.8); PLATELET COUNT 246 10^3/uL (134-434); RDW 13.3 % (11.6-15.6); WHITE BLOOD COUNT 9.4 K/mm3 (4.0-10.0)
[2024-02-27 18:14] LABS: INR 1.12 (0.83-1.09); PROTHROMBIN TIME (PATIENT) 12.8 SEC (9.7-13.0)
[2024-02-27 18:17] LABS: ACTIVATED PTT 34.4 SECONDS (25.2-36.5)
[2024-02-27] MEDS: SODIUM CHLORIDE 0.9% 500 ML INFUS.BAG IV ONE (18:29)
[2024-02-27 19:15] LABS: POTASSIUM 4.6 mmol/L (3.5-5.1)
[2024-02-27 19:18] LABS: ALBUMIN 3.9 g/dl (3.4-5.0)
[2024-02-27 19:21] LABS: CREATININE 0.7 mg/dL (0.55-1.3)
[2024-02-27 19:23] LABS: BILIRUBIN,TOTAL 0.6 mg/dL (0.2-1); TOT PROT 7.7 g/dl (6.4-8.2)
[2024-02-27 20:35] VITALS: BP 112/74; PULSE 94
== END 2024-02-27 21:11 | disposition home or self-care (01) ==
LOC: JER 15:15
DX: R00.2 Palpitations (principal); R07.9 Chest pain, unspecified; R20.0 Anesthesia of skin; R20.2 Paresthesia of skin; R10.84 Generalized abdominal pain
CPT/HCPCS: 36415; 71046-TC-FY; 80053; 84443; 84484; 85025; 85379; 85610; 85730; 93005; 93010; 99285-25